=== PATIENT | male | born 1940 | race Caucasian/White ===

== ENCOUNTER 2024-05-20 14:02 | Observation (INO) ==
--- NOTE | 2024-05-20 14:33 | CT Scan Report ---
CT head/brain wo con CLINICAL HISTORY: Neuro deficit, acute, stroke suspected. TECHNIQUE: Multiple axial CT images of the head were obtained without contrast. A dose lowering tech nique was utilized adhering to the principles of ALARA. CT DOSE: 703.85 mGy.cm COMPARISON: None FINDINGS: No intracranial hemorrhage seen. No mass effect or midline shift. There is prominence of th e ventricles out of proportion for sulci which could represent cerebral atrophy or mild normal pressu re hydrocephalus. There is moderate patchy periventricular hypodensity which is nonspecific, but usua lly represents chronic small vessel ischemic changes. No skull fracture seen. There is mild mucosal t hickening at the right maxillary sinus. IMPRESSION: No acute findings. ACT 112: Negative or not required by law. The above report was generated using voice recognition software. It may contain grammatical, syntax o r spelling errors. Electronically signed by: Rl Dennis M.D. 05/20/2024 2:32 PM
[2024-05-20 14:44] LABS: Hematocrit (blood only) 40.6 % (42.0-52.0); Hemoglobin 14.5 g/dl (14.0-18.0); Mean Corpuscular Hgb Conc 35.7 g/dL (32.0-36.0); Mean Corpuscular Volume 86.9 fL (80.0-100.0); Mean Platelet Volume 10.1 fL (9.4-12.4); Platelet Count 165 K/uL (130-400); RDW Coefficient of Variation 12.8 % (11.5-14.5); Red Blood Count 4.67 M/uL (4.70-6.10); White Blood Count 8.38 K/ul (4.8-10.8)
--- NOTE | 2024-05-20 14:47 | XRay Report ---
XR chest 1V portable CLINICAL HISTORY: stroke alert TECHNIQUE: Single frontal radiograph of the chest was obtained. Comparison: None available at the time of this dictation. FINDINGS: No lines and tubes are seen. Cardiomegaly is noted. Prominence and cephalization of the vasculature i s seen. No evidence of pleural effusion or pneumothorax. IMPRESSION: Cardiomegaly and mild pulmonary edema. ACT 112: Negative or not required by law. Electronically signed by: Ha Steven M.D. 05/20/2024 2:46 PM
[2024-05-20 15:01] LABS: Albumin Level 4.4 gm/dl (3.4-5.0); BUN Creatinine Ratio 25.4 (10-20); Bilirubin,Total 0.9 mg/dl (0.2-1.0); Calcium 9.5 mg/dl (8.6-10.3); Creatinine Clr Calc Pharmacy 116.5 ml/min; Globulin 2.2 gm/dl (2.5-4.0); Magnesium 1.8 mg/dl (1.7-2.4); Potassium 3.7 mmol/L (3.5-5.1); Total Protein 6.6 gm/dl (6.0-8.3)
[2024-05-20] MEDS: OPTIRAY 320 125ml IV ONE (16:03)
--- NOTE | 2024-05-20 16:15 | CT Scan Report ---
Clinical history: Difficulty finding words Technique: Axial computed tomography images were obtained of the brain after the administration of intravenous contrast according to the CT angiogram protocol Findings: There is calcified plaque within the cavernous and supraclinoid segments of the internal carotid arteries bilaterally, without stenosis No definite stenosis or aneurysm is seen of the anterior, middle, or posterior cerebral artery circulations. The visualized vertebral arteries and the basilar artery appear unremarkable Impression: No definite stenosis or aneurysm of the intracranial arteries Electronically signed by Tyler Sunshine 05-20-2024 4:15 PM
--- NOTE | 2024-05-20 16:22 | CT Scan Report ---
Clinical history: Difficulty finding words Technique: Axial computed tomography images were obtained of the neck after the administration of intravenous contrast according to the CT angiogram protocol Findings: No stenosis is seen in the common carotid arteries bilaterally. There is a mild stenosis of the left carotid bulb with 30-40% diameter narrowing. There is less severe plaque in the right carotid bulb, without apparent stenosis. The remainder of the internal carotid arteries appear patent bilaterally. No stenosis of the external carotid arteries is seen The vertebral arteries are patent bilaterally with no significant stenosis seen. The visualized thoracic aorta appears unremarkable There is a small heterogeneously enhancing nodule in the right thyroid lobe Impression: 1. 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 Indeterminate thyroid nodule. A follow-up thyroid ultrasound could be obtained Electronically signed by Tyler Sunshine 05-20-2024 4:21 PM
[2024-05-20 16:33] LABS: INR 1.1 (0.9-1.1); Partial Thromboplastin Ratio 1.1; Partial Thromboplastin Time 30 Seconds (21-31); Prothrombin Time 11.4 Seconds (9.0-12.0)
--- NOTE | 2024-05-20 16:58 | Electrocardiogram Report ---
Test Reason : Blood Pressure : */* mmHG Vent. Rate : 71 BPM Atrial Rate : 71 BPM P-R Int : 184 ms QRS Dur : 90 ms QT Int : 408 ms P-R-T Axes : * 17 77 degrees QTcB Int : 443 ms Sinus rhythm with marked sinus arrhythmia Nonspecific T wave abnormality Abnormal ECG No previous ECGs available Confirmed by Ford Salmeron ([id number]) on 05/20/2024 4:58:21 PM Referred By: Confirmed By: Ford Salmeron
[2024-05-20] MEDS ORDERED: LABETALOL HCL IV 5 MG/ML 20ML IV PRN (18:24)
--- NOTE | 2024-05-20 18:25 | Emergency Department Note ---
Impression & Plan Expressive aphasia ED Provider Note NAME: RAUL DANIELS AGE: 83 SEX: Male INFORMANT: Patient and ED PROVIDER(S): Alex Martell MD CHIEF COMPLAINT: Strokelike symptoms PLAN: Disposition: Admitted Outpatient prescription management: none Referral: None MEDICAL DECISION MAKING: Patient presented because strokelike symptoms. They were currently resolved and he was on Eliquis. Patient was not deemed a TNK candidate. He underwent a stroke workup. Blood work was unremarkable. Patient's ECG showed a sinus rhythm. Cardiac monitoring was unremarkable. CT and CT angiography revealed no acute findings. Patient was Hypertensive.discussed further management in the hospital and patient was in agreement. Consultation was made to the [facility] hospitalist service. Patient was evaluated in ER admitted for further management. Care/management discussed with: investments manager, hospitalist Level of care consideration(s): After review of the information above and other included data, I feel the patient requires escalation of care to admission Triage Nursing notes: reviewed and agree them. Vital Signs: reviewed and remarkable for hypertension Additional History obtained from: Patient's describes his difficulty word finding. Chronic Medical/Social Conditions affecting care: Hypertension Prior/ Outside/ External records reviewed: none Differential Diagnosis: CVA, TIA,Infection, dehydration, metabolic abnormality, hypo/hyperglycemia, electrolyte disturbance, anemia, hypoxia, cardiac sources, intracerebral event, toxicologic, neurologic, as well as other pathologies. Diagnostics, independently interpreted by me: ECG: Twelve-lead ECG reveals a sinus rhythm with sinus arrhythmia at 71 bpm. Cardiac Monitoring: Cardiac monitoring ordered by me: The patient was placed on continuous cardiac monitoring and observed. It revealed a sinus rhythm with sinus arrhythmia at 77 bpm. Medical decision rules: none Imaging studies: Chest x-ray reveals mild cardiomegaly. No infiltrate. Head CT: A noncontrast CT scan of the head was performed and was negative for tumor, fracture, intracranial hemorrhage, or other acute pathology. HPI: 83 year old Male arrives for evaluation of strokelike symptoms. This started about 10:00 this morning, lasting an hour and is resolved. The patient states he had difficulty getting his words out and her speech was garbled. is present and confirms. The patient also notes the following associated symptoms, none. Patient does note having an episode similar over a year ago but did not seek care for this. The patient has taken no medication for relieving factors. Current pain is rated as 0/10. Patient went to the [facility] and was referred to the ER due to concerns of the strokelike symptoms. Patient does take Eliquis. Pt denies LOC, headache, fevers, chills, diaphoresis, visual changes, neck pain, chest pain, breathing difficulties, nausea, vomiting, abdominal pain, back pain, melena, hematochezia, urinary symptoms, numbness, weakness, lymphadenopathy, rash, or other complaints. PAST MEDICAL HISTORY: See Below, anticoagulation, A-fib PAST SURGICAL HISTORY: See Below, SOCIAL HISTORY: See Below, HOME MEDICATIONS: See Below ALLERGIES: See Below VITALS: See Below PHYSICAL EXAMINATION: GENERAL: Awake, alert, well-appearing, in no distress HENT: Normocephalic, atraumatic. Oropharynx unremarkable. EYES: Normal conjunctiva. Sclera non-icteric. PERRLA. EOMI. NECK: Inspection normal. Non-tender. Supple. No nuchal rigidity. FROM. No masses. RESPIRATORY: Clear to auscultation. No wheezes. No rales. Normal respiratory effort. CARDIAC: Normal rate. Normal rhythm. No murmurs. No rubs. Extremities warm and well perfused. Pulses equal. No JVD. GI: Soft, non-distended. No tenderness to palpation. No rebound or guarding. No masses. RECTAL: Deferred. MUSCULOSKELETAL: Atraumatic. Chest examination reveals no tenderness. The back is symmetrical on inspection without obvious abnormality. There is no CVA tenderness to palpation. No joint edema. LOWER EXTREMITIES: Calves are equal size bilaterally and non-tender. 1+ edema. No discoloration. NEURO: Normal sensorium. No sensory or motor deficits noted. Speech normal. No drift. Normal rapid alternating movements. SKIN: No rash or jaundice noted. PROCEDURES: none CRITICAL CARE: none OBSERVATION NOTE: none Past Med/Surg History Problem List (Updated 05/20/24 @ 18:25 by Alex Martell MD) Expressive aphasia (Acute) Incomplete bladder emptying Venous stasis ulcer (Acute) Mixed conductive and sensorineural hearing loss of left ear with restricted hearing of right ear Encounter for mastoidectomy cavity debridement Impacted cerumen Urgency incontinence (Chronic) Lower extremity edema (Chronic) Chronic venous insufficiency (Chronic) Hearing loss of right ear due to cerumen impaction Medical History History of venous stasis ulcer of lower extremity Depression Hyperlipidemia Urinary incontinence Environmental and seasonal allergies Irregular heart beat History of Mohs micrographic surgery for skin cancer SCC (squamous cell carcinoma) Basal cell carcinoma Hypertension Surgical History Hx of cataract surgery Hx of colonoscopy S/P hernia repair History of mastoidectomy History of back surgery History of hernia repair History of tonsillectomy and adenoidectomy Family History Mother Hypertension Cancer Father Cancer Other No family history of bleeding disorder Social History Smoking Status: Former smoker Tobacco Type: Cigarettes packs per day: 1; Cigarettes Per Day: quit 1970; Second Hand Exposure: No; Do You Dip or Chew Tobacco: No; Hx Alcohol Use: Yes Alcohol type: wine Hx Substance Use: No Preferred Language: Burmese Communication Ability: Effective Visual Impairment: No Limitations Hearing Ability: Hard of Hearing Marriage Performer Required: No Beliefs That Will Affect Care: None marital status: Current Living Situation: Spouse current occupational status: retired Feels Safe at Home: Yes Diet: regular caffeine: Yes during the past year weight has: remained stable Assistive Devices: Cane, Glasses and Hearing Aid - Bilateral Allergies Allergies Allergy/AdvReac Type Severity Reaction Status Date / Time aspirin Allergy Unknown Unknown Verified 05/20/24 16:28 ibuprofen [From Advil] Allergy Unknown Unknown Verified 05/20/24 16:28 lisinopril Allergy Unknown THROAT Verified 05/20/24 16:28 SWELLING pollen extracts Allergy Unknown Congested Verified 05/20/24 16:28 shellfish derived Allergy Unknown Vomiting Verified 05/20/24 16:28 Home Meds Home Medications Medication Instructions Recorded Confirmed acetaminophen 500 mg capsule 500 mg PO QID PRN Pain 02/04/19 05/20/24 atorvastatin 20 mg tablet 20 mg PO HS 02/04/19 05/20/24 doxazosin 2 mg tablet 2 mg PO HS 02/04/19 05/20/24 sertraline 50 mg tablet 50 mg PO QAM 02/04/19 05/20/24 telmisartan 80 1 tab PO QAM 02/04/19 05/20/24 mg-hydrochlorothiazide 25 mg tablet apixaban 5 mg tablet (Eliquis) 5 mg PO QAM 12/26/20 05/20/24 metoprolol tartrate 25 mg tablet 25 mg PO BID 10/23/21 05/20/24 cholecalciferol (vitamin D3) 50 50 mcg PO DAILY 05/20/24 05/20/24 mcg (2,000 unit) tablet (Vitamin D3) cyanocobalamin (vitamin B-12) 1,000 mcg PO DAILY 05/20/24 05/20/24 1,000 mcg tablet (Vitamin B-12) tamsulosin 0.4 mg capsule 0.4 mg PO QAM 05/20/24 05/20/24 Previous Rx's Medication Instructions Recorded vibegron 75 mg tablet (Gemtesa) 75 mg PO DAILY #30 tabs 01/29/24 Results & Data (ED) Vital Signs Vital Signs - 24 hr 05/20/24 14:08 05/20/24 14:44 05/20/24 14:44 Temperature 36.6 C Temperature Source Temporal Artery Scan Pulse Rate 72 Pulse Rate [Apical] Pulse Rate from SpO2 Sensor Pulse Rhythm Regular Respiratory Rate 20 Respiratory Effort / Characteristics Non-Labored Spontaneous Respiratory Depth Normal Respiratory Pattern Regular Blood Pressure 188/95 H Blood Pressure [Left Arm] Blood Pressure [Right Arm] Blood Pressure Mean 126 Blood Pressure Mean [Left Arm] Blood Pressure Mean [Right Arm] Blood Pressure Position Sitting Pulse Oximetry 94 96 96 Oxygen Delivery Method Room Air Room Air Room Air Sepsis Recent Fever Within 48 Hours No Sepsis New/Unexplained Change in Mental Status No Sepsis Action Taken by Nursing No Action Required 05/20/24 14:44 05/20/24 14:48 05/20/24 14:50 Temperature Temperature Source Pulse Rate 70 70 Pulse Rate [Apical] 71 Pulse Rate from SpO2 Sensor 69 Pulse Rhythm Respiratory Rate 18 19 Respiratory Effort / Characteristics Respiratory Depth Respiratory Pattern Blood Pressure Blood Pressure [Left Arm] 149/90 H Blood Pressure [Right Arm] Blood Pressure Mean Blood Pressure Mean [Left Arm] 109 Blood Pressure Mean [Right Arm] Blood Pressure Position Pulse Oximetry 96 96 Oxygen Delivery Method Room Air Sepsis Recent Fever Within 48 Hours Sepsis New/Unexplained Change in Mental Status Sepsis Action Taken by Nursing 05/20/24 14:51 05/20/24 15:15 05/20/24 16:09 Temperature Temperature Source Pulse Rate 67 70 77 Pulse Rate [Apical] Pulse Rate from SpO2 Sensor 69 74 Pulse Rhythm Respiratory Rate 12 17 18 Respiratory Effort / Characteristics Respiratory Depth Respiratory Pattern Blood Pressure Blood Pressure [Left Arm] Blood Pressure [Right Arm] Blood Pressure Mean Blood Pressure Mean [Left Arm] Blood Pressure Mean [Right Arm] Blood Pressure Position Pulse Oximetry 95 94 Oxygen Delivery Method Sepsis Recent Fever Within 48 Hours Sepsis New/Unexplained Change in Mental Status Sepsis Action Taken by Nursing 05/20/24 16:11 05/20/24 16:15 05/20/24 16:16 Temperature Temperature Source Pulse Rate Pulse Rate [Apical] 72 Pulse Rate from SpO2 Sensor Pulse Rhythm Respiratory Rate 17 Respiratory Effort / Characteristics Non-Labored Spontaneous Respiratory Depth Normal Respiratory Pattern Regular Blood Pressure 173/91 H 184/82 H Blood Pressure [Left Arm] Blood Pressure [Right Arm] 184/82 H Blood Pressure Mean 119 91 Blood Pressure Mean [Left Arm] Blood Pressure Mean [Right Arm] 116 Blood Pressure Position Pulse Oximetry 96 Oxygen Delivery Method Room Air Sepsis Recent Fever Within 48 Hours Sepsis New/Unexplained Change in Mental Status Sepsis Action Taken by Nursing 05/20/24 16:16 05/20/24 16:45 05/20/24 17:02 Temperature Temperature Source Pulse Rate 69 Pulse Rate [Apical] Pulse Rate from SpO2 Sensor Pulse Rhythm Respiratory Rate 23 Respiratory Effort / Characteristics Respiratory Depth Respiratory Pattern Blood Pressure 184/82 H 144/54 H Blood Pressure [Left Arm] Blood Pressure [Right Arm] Blood Pressure Mean 91 64 Blood Pressure Mean [Left Arm] Blood Pressure Mean [Right Arm] Blood Pressure Position Pulse Oximetry 94 Oxygen Delivery Method Room Air Sepsis Recent Fever Within 48 Hours Sepsis New/Unexplained Change in Mental Status Sepsis Action Taken by Nursing 05/20/24 17:32 05/20/24 17:33 05/20/24 18:00 Temperature Temperature Source Pulse Rate 71 71 Pulse Rate [Apical] Pulse Rate from SpO2 Sensor Pulse Rhythm Respiratory Rate 20 Respiratory Effort / Characteristics Respiratory Depth Respiratory Pattern Blood Pressure 173/107 H Blood Pressure [Left Arm] Blood Pressure [Right Arm] Blood Pressure Mean 131 Blood Pressure Mean [Left Arm] Blood Pressure Mean [Right Arm] Blood Pressure Position Pulse Oximetry 97 98 Oxygen Delivery Method Room Air Room Air Sepsis Recent Fever Within 48 Hours Sepsis New/Unexplained Change in Mental Status Sepsis Action Taken by Nursing 05/20/24 18:02 05/20/24 18:14 Temperature Temperature Source Pulse Rate Pulse Rate [Apical] 78 Pulse Rate from SpO2 Sensor Pulse Rhythm Respiratory Rate 19 Respiratory Effort / Characteristics Non-Labored Spontaneous Respiratory Depth Normal Respiratory Pattern Regular Blood Pressure 190/135 H Blood Pressure [Left Arm] 178/137 H Blood Pressure [Right Arm] Blood Pressure Mean 157 Blood Pressure Mean [Left Arm] 150 Blood Pressure Mean [Right Arm] Blood Pressure Position Pulse Oximetry 96 Oxygen Delivery Method Room Air Sepsis Recent Fever Within 48 Hours Sepsis New/Unexplained Change in Mental Status Sepsis Action Taken by Nursing Laboratory Data 05/20/24 14:28 05/20/24 14:28 Lab Results 05/20/24 05/20/24 Range/Units 14:28 15:52 WBC 8.38 (4.8-10.8) K/ul RBC 4.67 L (4.70-6.10) M/uL Hgb 14.5 (14.0-18.0) g/dl Hct 40.6 L (42.0-52.0) % MCV 86.9 (80.0-100.0) fL MCH 31.0 (25.0-34.0) pg MCHC 35.7 (32.0-36.0) g/dL RDW Std Deviation 40.0 (36.4-46.3) fL RDW Coeff of Trell 12.8 (11.5-14.5) % Plt Count 165 (130-400) K/uL MPV 10.1 (9.4-12.4) fL PT Cancelled 11.4 INR Cancelled 1.1 APTT Cancelled 30 PTT Ratio Cancelled 1.1 Sodium 135 L (136-145) mmol/L Potassium 3.7 (3.5-5.1) mmol/L Chloride 101 (98-107) mmol/L Carbon Dioxide 29 (21-32) mmol/L Anion Gap 5 (3-11) BUN 16 (6-23) mg/dl Creatinine 0.63 (0.6-1.4) mg/dl Est Cr Clr Drug Dosing 116.5 ml/min eGFR 94.97 BUN/Creatinine Ratio 25.4 H (10-20) Glucose 126 H (70-99(Fasting)) mg/dl Calcium 9.5 (8.6-10.3) mg/dl Magnesium 1.8 (1.7-2.4) mg/dl Total Bilirubin 0.9 (0.2-1.0) mg/dl AST 17 (13-39) U/L ALT 20 (7-52) U/L Alkaline Phosphatase 80 (34-104) U/L Total Protein 6.6 (6.0-8.3) gm/dl Albumin 4.4 (3.4-5.0) gm/dl Globulin 2.2 L (2.5-4.0) gm/dl Albumin/Globulin Ratio 2.0 (0.9-2) Administered Medications Discontinued Medications Ioversol (Optiray 320 125ml) 119 ml IV ONCE ONE Stop: 05/20/24 16:03 Last Admin: 05/20/24 16:03 Dose: 119 ml Documented By: REVA Imaging Data Radiologist's Impression: Chest X-Ray 05/20/24 14:13 XR chest 1V portable CLINICAL HISTORY: stroke alert TECHNIQUE: Single frontal radiograph of the chest was obtained. Comparison: None available at the time of this dictation. FINDINGS: No lines and tubes are seen. Cardiomegaly is noted. Prominence and cephalization of the vasculature is seen. No evidence of pleural effusion or pneumothorax. IMPRESSION: Cardiomegaly and mild pulmonary edema. ACT 112: Negative or not required by law. Electronically signed by: Ha Steven M.D. 05/20/2024 2:[address] 05/20/24 14:13 CT head/brain wo con CLINICAL HISTORY: Neuro deficit, acute, stroke suspected. TECHNIQUE: Multiple axial CT images of the head were obtained without contrast. A dose lowering technique was utilized adhering to the principles of ALARA. CT DOSE: 703.85 mGy.cm COMPARISON: None FINDINGS: No intracranial hemorrhage seen. No mass effect or midline shift. There is prominence of the ventricles out of proportion for sulci which could represent cerebral atrophy or mild normal pressure hydrocephalus. There is moderate patchy periventricular hypodensity which is nonspecific, but usually represents chronic small vessel ischemic changes. No skull fracture seen. There is mild mucosal thickening at the right maxillary sinus. IMPRESSION: No acute findings. ACT 112: Negative or not required by law. The above report was generated using voice recognition software. It may contain grammatical, syntax or spelling errors. Electronically signed by: Rl Dennis M.D. 05/20/2024 2:32 PM Head CTA 05/20/24 15:36 Clinical history: Difficulty finding words Technique: Axial computed tomography images were obtained of the brain after the administration of intravenous contrast according to the CT angiogram protocol Findings: There is calcified plaque within the cavernous and supraclinoid segments of the internal carotid arteries bilaterally, without stenosis No definite stenosis or aneurysm is seen of the anterior, middle, or posterior cerebral artery circulations. The visualized vertebral arteries and the basilar artery appear unremarkable Impression: No definite stenosis or aneurysm of the intracranial arteries Electronically signed by Tyler Sunshine 05-20-2024 4:15 PM Neck CTA 05/20/24 15:36 Clinical history: Difficulty finding words Technique: Axial computed tomography images were obtained of the neck after the administration of intravenous contrast according to the CT angiogram protocol Findings: No stenosis is seen in the common carotid arteries bilaterally. There is a mild stenosis of the left carotid bulb with 30-40% diameter narrowing. There is less severe plaque in the right carotid bulb, without apparent stenosis. The remainder of the internal carotid arteries appear patent bilaterally. No stenosis of the external carotid arteries is seen The vertebral arteries are patent bilaterally with no significant stenosis seen. The visualized thoracic aorta appears unremarkable There is a small heterogeneously enhancing nodule in the right thyroid lobe Impression: 1. 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 Indeterminate thyroid nodule. A follow-up thyroid ultrasound could be obtained Electronically signed by Tyler Sunshine 05-20-2024 4:21 PM Discharge Plan Visit Data Chief Complaint: TIA Symptoms Stated Complaint: TROUBLE FORMING WORDS, MIGRAINE/THIS MORNING ED Provider: Alex Martell Discharge Problem: Expressive aphasia Patient Disposition: Admitted As Inpatient Discharge Instructions Interventions: ED Discharge Assessment Last Done: 05/20/24 18:17 Forms Stand Alone Forms: My [employer] Prescriptions Prescriptions: No Action metoprolol tartrate 25 mg tablet 25 mg PO BID Eliquis 5 mg tablet 5 mg PO QAM telmisartan-hydrochlorothiazid 80-25 mg tablet 1 tab PO QAM doxazosin 2 mg tablet 2 mg PO HS acetaminophen 500 mg capsule 500 mg PO QID PRN (Reason: Pain) sertraline 50 mg tablet 50 mg PO QAM atorvastatin 20 mg tablet 20 mg PO HS Gemtesa 75 mg tablet 75 mg PO DAILY Qty: 30 5RF cyanocobalamin (vitamin B-12) [Vitamin B-12] 1,000 mcg Tablet 1,000 mcg PO DAILY cholecalciferol (vitamin D3) [Vitamin D3] 50 mcg (2,000 unit) Tablet 50 mcg PO DAILY tamsulosin 0.4 mg capsule 0.4 mg PO QAM Referrals Referrals: Seymour Mcgowan MD [Primary Care Provider] -
[2024-05-20] MEDS ORDERED: ONDANSETRON INJ 2 MG/ML 2 ML VIAL IV PRN (18:28)
[2024-05-20] MEDS ORDERED: PHARMACIST DISCHARGE MED REC CONSULT PRN (18:28)
[2024-05-20] MEDS ORDERED: ACETAMINOPHEN 325 MG TAB PO PRN (18:28)
[2024-05-20] MEDS ORDERED: POLYETHYLENE (MIRALAX) 17 GM PACK PO PRN (18:28)
--- NOTE | 2024-05-20 19:13 | History & Physical Report ---
Date of Service May 20, 2024 Assessment & Plan (1) Stroke-like symptoms: Plan: Patient is 83-year-old male with PMH HTN, HLD, paroxysmal atrial fibrillation anticoagulated on Eliquis, anxiety, history of prostate CA presented to ER after episode of expressive aphasia this morning lasting approximately 10 minutes. No further symptoms In ER pt hypertensive, otherwise vitals stable. CT Head:no acute findings CTA Head: No definite stenosis or aneurysm of the intracranial arteries CTA neck: Mild stenosis of the left carotid bulb. Indeterminate thyroid nodule. CXR: Cardiomegaly is noted. Prominence and cephalization of the vasculature DDx: TIA, CVA, Hypertensive emergency, complex migraine Tele to monitor for arrhythmias A1C, TSH, Lipid panel in am MRI brain Echo Fall precautions, aspiration precautions PT/OT consult Anticoagulated on Eliquis. Will obtain MRI results before adding aspirin. Continue home dose atorvastatin, may need to consider increasing dose Allow permissive HTN, labetalol SBP>185 in 1st 24 hrs Consider neurology consult (2) Hypertension: Plan: Hypertensive in ER Allow permissive HTN, labetalol SBP>185 in 1st 24 hrs Continue home metoprolol tartrate, telmisartan, HCTZ (3) PAF (paroxysmal atrial fibrillation): Plan: Anticoagulated on Eliquis Continue Eliquis, metoprolol tartrate (4) Hyperlipidemia: Plan: On atorvastatin (5) Anxiety: Plan: Continue sertraline DVT Prophylaxis On Eliquis Admit telemetry Full Code as per discussion with pt Follows with Dr Mcgowan for routine care Pt was seen and care coordinated with Dr Dobbs. See addendum I spent a total of 79 minutes reviewing notes, outpatient records, labs, medication, coordinating, documenting and providing care for this patient excluding time spent in the performance of separately billed services. History of Present Illness Chief Complaint: Speech changes Primary Care Provider: Seymour Mcgowan MD Patient is 83-year-old male with PMH HTN, HLD, paroxysmal atrial fibrillation anticoagulated on Eliquis, anxiety, history of prostate CA presented to ER with complaint of episode of speech changes today. Patient states this morning woke up in his normal health. He states he was watching the news and then was trying to geiger to get ready to go out for lunch today and he was feeling increasingly anxious. States he is anxious "most of the time" and this felt like his typical anxiety. He states then he had onset of expressive aphasia that lasted approximately 10 minutes. Patient states symptoms self resolved. After that he had episode of "flashing light" in right eye. Denies any headache. Patient reports history episodes of "flashing light" to right eye in past that is never associated with headache, which he relates to possible migraine. Denies any headache, dizziness, extremity weakness, facial drooping. Reports chronic BLE peripheral neuropathy but denies any changes or increased extremity paresthesias. States went to outpatient clinic today and was referred to ER. Denies any recurrent symptoms today. Denies fever/chills, diaphoresis, N/V/D/C, syncope, vision loss, diplopia, neck pain, CP, SOB, palpitations, cough, sore throat, rhinorrhea, abdominal pain, paresthesias, extremity edema, rashes, urinary symptoms. Allergies Allergy/AdvReac Type Severity Reaction Status Date / Time aspirin Allergy Unknown Unknown Verified 05/20/24 16:28 ibuprofen [From Advil] Allergy Unknown Unknown Verified 05/20/24 16:28 lisinopril Allergy Unknown THROAT Verified 05/20/24 16:28 SWELLING pollen extracts Allergy Unknown Congested Verified 05/20/24 16:28 shellfish derived Allergy Unknown Vomiting Verified 05/20/24 16:28 Home Medications Medication Instructions Recorded Confirmed Type acetaminophen 500 mg capsule 500 mg PO QID PRN Pain 02/04/19 05/20/24 History atorvastatin 20 mg tablet 20 mg PO HS 02/04/19 05/20/24 History doxazosin 2 mg tablet 2 mg PO HS 02/04/19 05/20/24 History sertraline 50 mg tablet 50 mg PO QAM 02/04/19 05/20/24 History telmisartan 80 1 tab PO QAM 02/04/19 05/20/24 History mg-hydrochlorothiazide 25 mg tablet apixaban 5 mg tablet (Eliquis) 5 mg PO BID 12/26/20 05/20/24 History metoprolol tartrate 25 mg tablet 25 mg PO BID 10/23/21 05/20/24 History vibegron 75 mg tablet (Gemtesa) 75 mg PO DAILY #30 tabs 01/29/24 05/20/24 Rx cholecalciferol (vitamin D3) 50 50 mcg PO DAILY 05/20/24 05/20/24 History mcg (2,000 unit) tablet (Vitamin D3) cyanocobalamin (vitamin B-12) 1,000 mcg PO DAILY 05/20/24 05/20/24 History 1,000 mcg tablet (Vitamin B-12) tamsulosin 0.4 mg capsule 0.4 mg PO QAM 05/20/24 05/20/24 History Past Med/Surg History Problem List (Updated 05/20/24 @ 21:32 by Hawa Ng PA-C) Anxiety PAF (paroxysmal atrial fibrillation) Stroke-like symptoms Expressive aphasia (Acute) Incomplete bladder emptying Venous stasis ulcer (Acute) Mixed conductive and sensorineural hearing loss of left ear with restricted hearing of right ear Encounter for mastoidectomy cavity debridement Impacted cerumen Urgency incontinence (Chronic) Lower extremity edema (Chronic) Chronic venous insufficiency (Chronic) Hearing loss of right ear due to cerumen impaction Medical History History of venous stasis ulcer of lower extremity Depression Hyperlipidemia Urinary incontinence Environmental and seasonal allergies Irregular heart beat ? a fib hx - poor historian- controlled w/ medication - follows w/ [facility], last visit ~ yr ago History of Mohs micrographic surgery for skin cancer SCC (squamous cell carcinoma) hx Basal cell carcinoma hx Hypertension Surgical History Hx of cataract surgery right Hx of colonoscopy S/P hernia repair History of mastoidectomy mastoidectomy w/ type 4 tympanoplasty 1973. History of back surgery cyst removed History of hernia repair History of tonsillectomy and adenoidectomy Family History Mother Hypertension Cancer Father Cancer Other No family history of bleeding disorder Social History Smoking Status: Former smoker Tobacco Type: Cigarettes packs per day: 1; Cigarettes Per Day: quit 1970; Second Hand Exposure: No; Do You Dip or Chew Tobacco: No; Hx Alcohol Use: Yes Alcohol type: wine Hx Substance Use: No Preferred Language: Telugu Communication Ability: Effective Visual Impairment: No Limitations Hearing Ability: Hard of Hearing Commutator Operator Required: No Beliefs That Will Affect Care: None marital status: Current Living Situation: Spouse current occupational status: retired Feels Safe at Home: Yes Diet: regular caffeine: Yes during the past year weight has: remained stable Assistive Devices: Cane, Glasses and Hearing Aid - Bilateral Review of Systems Review of Systems: All systems reviewed & are unremarkable except as noted in HPI & below Physical Exam Physical Exam: General: no distress, WDWN Head: normocephalic, atraumatic Eyes: PERRL, EOM's intact, no nystagmus, conjunctiva non-injected, anicteric ENT: normal inspection external ears, nose, mucous membranes moist Neck: supple, trachea midline Lungs: clear, no respiratory distress, no wheezing/rhonchi/rales CV: RRR, no murmur, no JVD, no pretibial edema Abd: normal BS, soft, non-tender Ext: no cyanosis, no calf tenderness Neuro: A&O x 3, no focal deficits noted, anxious affect. facial sensation is intact and symmetric, face is strong and symmetric, soft palate elevates symmetrically, no dysarthria, shoulder shrug intact, tongue is midline, normal movement, no fasciculations. strength equal bilateral upper and lower extremities Skin: warm, dry Results & Data Results & Data Vital Signs (Past 12 Hours) Vital Signs Temp Pulse Pulse Resp BP BP BP 05/20/24 16:16 184/82 H 05/20/24 16:16 184/82 H 05/20/24 16:15 72 17 184/82 H 05/20/24 16:11 173/91 H 05/20/24 16:09 77 18 05/20/24 15:15 70 17 05/20/24 14:51 67 12 05/20/24 14:50 70 05/20/24 14:48 70 19 05/20/24 14:44 71 18 149/90 H 05/20/24 14:44 05/20/24 14:44 05/20/24 14:08 36.6 C 72 20 188/95 H Pulse Ox O2 Del Method 05/20/24 16:16 05/20/24 16:16 05/20/24 16:15 96 Room Air 05/20/24 16:11 05/20/24 16:09 05/20/24 15:15 94 05/20/24 14:51 95 05/20/24 14:50 05/20/24 14:48 96 05/20/24 14:44 96 Room Air 05/20/24 14:44 96 Room Air 05/20/24 14:44 96 Room Air 05/20/24 14:08 94 Room Air Laboratory Results Short CBC 05/20/24 Range/Units 14:28 WBC 8.38 (4.8-10.8) K/ul Hgb 14.5 (14.0-18.0) g/dl Hct 40.6 L (42.0-52.0) % Plt Count 165 (130-400) K/uL BMP 05/20/24 14:28 Sodium 135 L Potassium 3.7 Chloride 101 Carbon Dioxide 29 BUN 16 Creatinine 0.63 Glucose 126 H Calcium 9.5 Liver Function 05/20/24 Range/Units 14:28 Total Bilirubin 0.9 (0.2-1.0) mg/dl AST 17 (13-39) U/L ALT 20 (7-52) U/L Alkaline Phosphatase 80 (34-104) U/L Albumin 4.4 (3.4-5.0) gm/dl Diagnostic Findings Chest X-Ray 05/20/24 14:13 XR chest 1V portable CLINICAL HISTORY: stroke alert TECHNIQUE: Single frontal radiograph of the chest was obtained. Comparison: None available at the time of this dictation. FINDINGS: No lines and tubes are seen. Cardiomegaly is noted. Prominence and cephalization of the vasculature is seen. No evidence of pleural effusion or pneumothorax. IMPRESSION: Cardiomegaly and mild pulmonary edema. ACT 112: Negative or not required by law. Electronically signed by: Ha Steven M.D. 05/20/2024 2:[address] 05/20/24 14:13 CT head/brain wo con CLINICAL HISTORY: Neuro deficit, acute, stroke suspected. TECHNIQUE: Multiple axial CT images of the head were obtained without contrast. A dose lowering technique was utilized adhering to the principles of ALARA. CT DOSE: 703.85 mGy.cm COMPARISON: None FINDINGS: No intracranial hemorrhage seen. No mass effect or midline shift. There is prominence of the ventricles out of proportion for sulci which could represent cerebral atrophy or mild normal pressure hydrocephalus. There is moderate patchy periventricular hypodensity which is nonspecific, but usually represents chronic small vessel ischemic changes. No skull fracture seen. There is mild mucosal thickening at the right maxillary sinus. IMPRESSION: No acute findings. ACT 112: Negative or not required by law. The above report was generated using voice recognition software. It may contain grammatical, syntax or spelling errors. Electronically signed by: Rl Dennis M.D. 05/20/2024 2:32 PM Head CTA 05/20/24 15:36 Clinical history: Difficulty finding words Technique: Axial computed tomography images were obtained of the brain after the administration of intravenous contrast according to the CT angiogram protocol Findings: There is calcified plaque within the cavernous and supraclinoid segments of the internal carotid arteries bilaterally, without stenosis No definite stenosis or aneurysm is seen of the anterior, middle, or posterior cerebral artery circulations. The visualized vertebral arteries and the basilar artery appear unremarkable Impression: No definite stenosis or aneurysm of the intracranial arteries Electronically signed by Tyler Sunshine 05-20-2024 4:15 PM Neck CTA 05/20/24 15:36 Clinical history: Difficulty finding words Technique: Axial computed tomography images were obtained of the neck after the administration of intravenous contrast according to the CT angiogram protocol Findings: No stenosis is seen in the common carotid arteries bilaterally. There is a mild stenosis of the left carotid bulb with 30-40% diameter narrowing. There is less severe plaque in the right carotid bulb, without apparent stenosis. The remainder of the internal carotid arteries appear patent bilaterally. No stenosis of the external carotid arteries is seen The vertebral arteries are patent bilaterally with no significant stenosis seen. The visualized thoracic aorta appears unremarkable There is a small heterogeneously enhancing nodule in the right thyroid lobe Impression: 1. 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 Indeterminate thyroid nodule. A follow-up thyroid ultrasound could be obtained Electronically signed by Tyler Sunshine 05-20-2024 4:21 PM Supervising Physician Co-Signing Physician Notes I have seen and discussed the case with the collaborating advanced practitioner. I agree with the above H&P. I have reviewed and confirmed the patients medical history, the findings on physical examination, and the patients diagnosis and treatment plan with Hernandez REYES and agree with the information docum ented. In short, Mr. Carmen is an 83 yo gentleman presenting with episode of aphasia this morning. CT was without critical vessel stenosis, but noted patchy periventricular hypodensity similar to chronic changes Patient reports significant anxiety over multiple events that took place today--possibly contributing to presentation On exam, patient was with clear speech, talkative and pleasant. CNII-CNXII intact. moving all extremities with good strength #Stroke like symptoms MRI ordered consider neuro consult if positive patient on eliquis at this time, continue lipid panel in am, consider increasing statin if warranted agree with plan above I spent a total of 15 minutes coordinating, documenting, and providing care for this patient excluding time spent in the performance of separately billed services. All of the aforementioned completed outside of collaborating with the assigned advanced practitioner for a full treatment plan. I have reviewed the advanced practitioner's documentation, and I agree with, and take responsibility for the plan of care
--- OUTSIDE RECORDS SUMMARY | 2024-05-20 20:48 | External Medical Summary | Continuity Of Care Document ---
Author Name Unknown Address [address] [place] [id number] Organization [facility] () Care Team Providers Care Operations Research Scientist Name Role Phone Seymour Mcgowan Primary Care Provider +
--- OUTSIDE RECORDS SUMMARY | 2024-05-20 20:48 | External Medical Summary | Summary of Care ---
Author Name Unknown Organization [facility] [address] [facility] [facility] [address] Phone [phone] Care Team Providers Care Mitochondrial Disorders Counselor Name Role Phone Seymour Rod MD Primary Care Provider + Reason for Visit * Reason Comments eRx-Medication Refill Encounter Details Date Type Department Care Team (Late st Contact Info) Description 04/06/2024 Refill General Internal Medicine [facility] [address] [facility] [place] [address] Seymour Rod MD 200 [place] [address] Hyperlipidemia with target LDL less than 130 Allergies Active Allergy Reactions Criticality Noted Date Comments Ibuprofen Other (Please comment) 03/07/2011 Pt was told to,not take --allergy to lisinopril Buffered Aspirin Other (Please comment) 03/07/2011 Pt states was told to not take--allergy to lisinopril Aspirin 03/28/2015 Lisinopril Anaphylaxis High 10/26/2010 Pollen Extract 07/30/2023 Other Reaction(s): Congested Shellfish-Derived Products Nausea/vomiting 09/06/2020 documented as of this encounter (statuses as of 04/07/2024) Medications SHILPA 180 MG PO TABS 1 daily Active VITAMIN C 500 MG PO TABS one pill each day Active B-COMPLEX/B-12 PO TABS 1 tablet daily Active ACETAMINOPHEN 500 MG PO TABS as needed for pain; no dosage provided; patient reports takes rarely 02/23/20 14 Active PA BIOTIN 1000 MCG PO TABS 1 tablet daily Active Multiple Vitamins-Mineral s (CENTRUM SILVER) Tablet Take 1 Tablet by mouth in the morning. When not taking b-complex vitamin. 08/10/19 16 Active Joint Health Oral Capsule Take by mouth 1 Capsule daily . Active Ofloxacin 0.3 % Otic Solution (Floxin) INSERT 6 DROPS INTO EAR TWICE A DAY FOR 7 DAYS 09/24/19 21 Active Gemtesa 75 MG Oral Tablet Take 1 Tablet by mouth in the morning. 03/30/20 21 Active Eliquis 5 MG Oral Tablet (Apixaban)Indica tions:Persistent atrial fibrillation (HCC) take 1 tablet by mouth IN THE MORNING and 1 tablet BEFORE BEDTIME 180 Tablet 1 04/29/19 24 Active Tamsulosin HCl 0.4 MG Oral Capsule (Flomax) 05/20/19 24 Active Sertraline HCl 50 MG Oral Tablet (Zoloft)Indicati ons:Anxiety state take 1 tablet by mouth once daily 90 Tablet 3 12/09/19 24 Active Telmisartan-HCTZ 80-25 MG Oral TabletIndication s:HTN, goal below 140/90 take 1 tablet by mouth every morning 90 Tablet 3 12/18/19 24 Active Doxazosin Mesylate 2 MG Oral Tablet (Cardura)Indicat ions:HTN, goal below 140/90 take 1 tablet by mouth once daily 90 Tablet 1 01/11/20 24 Active Metoprolol Tartrate 25 MG Oral Tablet (Lopressor)Indic ations:HTN, goal below 140/90,Persisten t atrial fibrillation (HCC) take 1 tablet by mouth every morning and at bedtime 180 Tablet 1 04/04/20 24 Active Atorvastatin Calcium 20 MG Oral Tablet (Lipitor)Indicat ions:Hyperlipide isiah with target LDL less than 130 take 1 tablet by mouth every morning 90 Tablet 1 04/07/20 24 Active Atorvastatin Calcium 20 MG Oral Tablet (Lipitor)Indicat ions:Hyperlipide isiah with target LDL less than 130 Take 1 Tablet by mouth daily. 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 Hx of BCC on right posterior shoulder - 1985 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 History of left mastoidectomy 03/01/2016 Urge incontinence of urine 02/28/2015 Overview (02/28/2015): From prostate cancer surgery Mixed hearing loss, unilateral 12/15/2012 Otitis externa, chronic 12/15/2012 Mixed hyperlipidemia 04/16/2011 Overview (08/29/2015): ICD-10 update of inactive term History of prostate cancer 04/16/2011 HTN, goal below 140/90 10/26/2010 Allergic rhinitis 10/26/2010 Anxiety state 10/26/2010 documented as of this encounter (statuses as of 04/07/2024) Resolved Problems Problem Noted Date Diagnosed Date Resolved Date Persistent atrial fibrillation 11/17/2020 04/11/2021 Prediabetes 06/11/2017 08/16/2017 Overview: Per Prediabetes protocol #1 Neoplasm of uncertain behavior of skin 12/29/2013 02/19/2017 Actinic keratosis 12/29/2013 02/19/2017 History of basal cell carcinoma 12/29/2013 02/19/2017 History of squamous cell carcinoma 12/29/2013 02/19/2017 Snoring 12/15/2012 08/16/2017 Overview (08/09/2015): ICD-10 update of inactive term Excess wax in ear 12/15/2012 08/16/2017 Deviated nasal septum 12/15/20122018 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, including shoulder 01/31/2011 02/19/2017 Hearing loss 10/26/2010 08/16/2017 Other malignant neoplasm of skin of upper limb, including shoulder 10/26/2010 01/31/2011 Malignant neoplasm of skin of lip 10/26/2010 Overview (08/09/2015): ICD-10 update of inactive term 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 10/26/2010 documented as of this encounter (statuses as of 04/07/2024) Immunizations Name Administration Dates Next Due COVID-19 mRNA, LNP-s, No Pre serve, 2-Dose Series ([employer]) 03/01/2021,07/11/2020,06/11/2020 COVID-19, LNP-s, No Preserve , Carlton-sucrose, Ages 12+ (Pfizer) 09/13/2021 Covid-19, Mrna, Lnp-s, Pf, B ivalent, 30 Mcg, IM, 12 yrs and above ([employer]) 01/22/2022 Pneumococcal Conjugate Vacc, 13 Valent (Prevnar) 08/31/2014 Pneumococcal Polysaccharide PPV23 (Pneumovax) 06/27/2014,01/31/2011,02/27/2006 Season Influenza, Quad, PF, Adjuvanted, 65+ Yrs, IM (FLUAD) 01/06/2020 Seasonal Influenza Vac., MDV , IM, 0.5 mL (Fluzone) 01/17/2015,01/12/2014,01/29/2013,10/12/2011,01/25/2011 01/29/2014 Seasonal Influenza Virus Vac cine, Unspecified Formulation 12/28/2020,01/23/2019,12/28/2017 Seasonal Influenza, High Dos e, Trivalent, PF, IM (Fluzone HD) 01/01/2024,12/28/2020 Seasonal Influenza, PF, 6 M & above, IM , (FluLaval or Fluzone) 01/10/2018 Seasonal Influenza, Quadriva lent Hd, 65+ Yrs 01/27/2023 Seasonal Influenza, Quadriva lent, No Preserve, IM 01/10/2017,02/14/2016 Seasonal Influenza, Trivalen t, Adjuvanted, 65+ YRS, PF, (Fluad) 01/17/2019 TDAP (age 10 and older)(Boostrix) 04/21/2014 Varicella Zoster Vaccine (Adult) 04/29/2013,08/2008 Zoster Vaccine Recombinant (Shingrix) 03/11/2019 ,01/06/2019 documented as of this encounter Social History Tobacco Use Types Packs/Day Years Used Date Smoking Tobacco: Former Cigarettes 1 20 0 07/11/1950 - 07/11/1970 Smokeless Tobacco: Never Alcohol Use Standard Drinks/Week Comments Yes 5.8 (1 standard drink = 0.6 oz p ure alcohol) occasional AUDIT-C Answer Date Recorded Q1: How often do you have a drink containing alcohol? 4 or more times a week 09/06/2020 Q2: How many drinks containi ng alcohol do you have on a typical day when you are drinking? 1 or 2 Q3: How often do you have si x or more drinks on one occasion? Not asked 09/06/2020 PHQ-2 Answer Date Recorded PHQ Adult Total Score 0 03/24/2024 Hunger Vital Sign Answer Date Recorded Worried About Running Out of Food in the Last Ye ar Never true 03/30/2019 Ran Out of Food in the Last Year Never true 03/30/2019 Education Answer Date Recorded What is the highest level of school you have completed or the highest degree you have received? 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 Not on file Not on fi le Not on file documented as of this encounter Miscellaneous Notes * [facility] 1:39 PM ESTSigned Prescriptions: Disp Refills Atorvastatin Calcium 20 MG Oral Tablet (Li*90 Tab*1 Sig: take 1 tablet by mouth every morningAuthorizing Provider: SEYMOUR ROD User: MICHAEL GARCIA documented in this encounter Plan of Treatment Upcoming Encounters Date Type Department Care Team (Late st Contact Info) Description 05/18/2024 3:10 PM EST Office Visit Dermatology [facility] [place] [address] [place] [address] Isi Franklin PA-C [address] [place] [address] 06/05/2024 2:00 PM EST Office Visit Cardiology, [facility] [address] [facility] [place] [phone] Sonal Ramon CRNP [address] [place] [address] 07/07/2024 2:00 PM EDT Office Visit Hematology/Oncology [facility] [address] [place] [address] Reynaldo Richard MD [address] [facility] [place] [address] 08/12/2024 2:20 PM EDT Office Visit Neurology [facility] [address] [place], [place] [phone] Mari Powell MD [address] [place] [address] [place], [place] [id number] 12/29/2024 2:40 PM EDT Office Visit General Internal Medicine [facility] [address] [place] [address] Seymour Rod MD [address] [place] [address] [place] [address] Health Maintenance Due Date Last Done Comments Adult Wellness Visit 09/06/2021 09/06/2020 DTap/Tdap Vaccines (2 - Td or Tdap) 04/21/2024 04/21/2014 GFR 10/22/2024 10/23/2023, 04/30, 10/09/2022, Additional history exists Colonoscopy 02/08/2025 02/09/2020, 01/27, 04/05/2014, Additional history exists Depression Screening 03/24/2025 03/24/2024, 09/01/19 15 Albumin/Creatinine Ratio 05/23/2026 024, 08/27/2014, 01/23/2011 Pneumococcal Vaccine: 65+ Years Completed 08/31/2014, 06/27/2014, 01/31/2011, Additional history exists Zoster Vaccines Completed 03/11/2019, 12/28, 04/29/2013, Additional history exists RETIRED - COLONOSCOPY-EVERY 5 YRS AGES 18-100 Discontinued 02/09/2020, 02/09/2020, 04/05/2014, Additional history exists Influenza Vaccine (FLU shot) Completed 01/01/2024, 01/27/2023, 12/28/2020, Additional history exists COVID-19 Vaccine Completed 01/02/2024, 07/2023, 01/27/2023, Additional history exists HPV (Gardasil) Vaccine Aged Out No lo nger eligible based on patient's age to complete this topic Hepatitis B Vaccine Aged Out No longe r eligible based on patient's age to complete this topic MENINGOCOCCAL (MENACTRA/MENVEO) Aged Out No longer eligible based on patient's age to complete this topic documented as of this encounter Medical Devices Not on filedocumented as of this encounter Visit Diagnoses Diagnosis Hyperlipidemia with target LDL less than 130 Other and unspecified hyperlipidemia documented in this encounter Care Teams Mitochondrial Disorders Counselor Relationship Specialty Start Date End Date Seymour Rod MD [address] [place], [place] [address] PCP - General Internal Medicine 10/26/10 documented as of this encounter
--- OUTSIDE RECORDS SUMMARY | 2024-05-20 20:48 | External Medical Summary | Summary of Care ---
Author Name Unknown Organization [facility] Address [address] [facility] [address] Phone [phone] Care Team Providers Care Land Developer Name Role Phone Seymour Rod MD Primary Care Provider + Reason for Visit * Reason Onset Date Comments Medication Refill 05/07/2024 Encounter Details Date Type Department Care Team (Late st Contact Info) Description 05/07/2024 Refill General Internal Medicine [address] [place] [address] Seymour Rod MD [address] [place] [id number] Persistent atrial fibrillation (HCC) Allergies Active Allergy Reactions Criticality Noted Date Comments Ibuprofen Other (Please comment) 03/07/2011 Pt was told to,not take --allergy to lisinopril Buffered Aspirin Other (Please comment) 03/07/2011 Pt states was told to not take--allergy to lisinopril Aspirin 03/28/2015 Lisinopril Anaphylaxis High 10/26/2010 Pollen Extract 07/30/2023 Other Reaction(s): Congested Shellfish-Derived Products Nausea/vomiting 09/06/2020 documented as of this encounter (statuses as of 05/07/2024) Medications SHILPA 180 MG PO TABS 1 daily Active VITAMIN C 500 MG PO TABS one pill each day Active B-COMPLEX/B-12 PO TABS 1 tablet daily Active ACETAMINOPHEN 500 MG PO TABS as needed for pain; no dosage provided; patient reports takes rarely 4 Active PA BIOTIN 1000 MCG PO TABS 1 tablet daily Active Multiple Vitamins-Minerals (CENTRUM SILVER) Tablet Take 1 Tablet by mouth in the morning. When not taking b-complex vitamin. 6 Active Joint Health Oral Capsule Take by mouth 1 Capsule daily . Active Ofloxacin 0.3 % Otic Solution (Floxin) INSERT 6 DROPS INTO EAR TWICE A DAY FOR 7 DAYS 1 Active Gemtesa 75 MG Oral Tablet Take 1 Tablet by mouth in the morning. 1 Active Tamsulosin HCl 0.4 MG Oral Capsule (Flomax) 4 Active Sertraline HCl 50 MG Oral Tablet (Zoloft)Indicatio ns:Anxiety state take 1 tablet by mouth once daily 90 Tablet 3 4 Active Telmisartan-HCTZ 80-25 MG Oral TabletIndications :HTN, goal below 140/90 take 1 tablet by mouth every morning 90 Tablet 3 4 Active Doxazosin Mesylate 2 MG Oral Tablet (Cardura)Indicati ons:HTN, goal below 140/90 take 1 tablet by mouth once daily 90 Tablet 1 4 Active Metoprolol Tartrate 25 MG Oral Tablet (Lopressor)Indica tions:HTN, goal below 140/90,Persistent atrial fibrillation (HCC) take 1 tablet by mouth every morning and at bedtime 180 Tablet 1 4 Active Atorvastatin Calcium 20 MG Oral Tablet (Lipitor)Indicati ons:Hyperlipidemi a with target LDL less than 130 take 1 tablet by mouth every morning 90 Tablet 1 4 Active Apixaban 5 MG Oral Tablet (Eliquis)Indicati ons:Persistent atrial fibrillation (HCC) Take 1 Tablet by mouth in the morning and 1 Tablet before bedtime. 180 Tablet 1 5 Active Eliquis 5 MG Oral Tablet (Apixaban)Indicat ions:Persistent atrial fibrillation (HCC) take 1 tablet by mouth IN THE MORNING and 1 tablet BEFORE BEDTIME 180 Tablet 1 4 05/07/19 25 Discontinu ed(Refill) documented as of this encounter (statuses as of 05/07/2024) Active Problems Problem Noted Date Diagnosed Date [...] as of this encounter (statuses as of 05/07/2024) Resolved Problems Problem Noted Date Diagnosed Date [...] as of this encounter (statuses as of 05/07/2024) Immunizations Name Administration Dates Next Due COVID-19 mRNA, LNP-s, No Pre serve, 2-Dose Series ([employer]) 03/01/2021,07/11/2020,06/11/2020 COVID-19, LNP-s, No Preserve , Carlton-sucrose, Ages 12+ ([employer]) 09/13/2021 Covid-19, Mrna, Lnp-s, Pf, B ivalent, 30 Mcg, IM, 12 yrs and above ([employer]) 01/22/2022 Pneumococcal Conjugate Vacc, 13 Valent (Prevnar) 08/31/2014 Pneumococcal Polysaccharide PPV23 (Pneumovax) 06/27/2014,01/31/2011,02/27/2006 Season Influenza, Quad, PF, Adjuvanted, 65+ Yrs, IM (FLUAD) 01/06/2020 Seasonal Influenza Vac., MDV , IM, 0.5 mL (Fluzone) 01/17/2015,01/12/2014,01/29/2013,12/2011,01/25/2011 01/29/2014 Seasonal Influenza Virus Vac cine, Unspecified [...] encounter Miscellaneous Notes * Telephone Encounter - Anikte Hong [facility] - 05/07/2024 2:28 PM ESTSigned Prescriptions: Disp Refills Apixaban 5 MG Oral Tablet (Eliquis) 180 Ta*1 Sig: Take 1 Tablet by mouth in the morning and 1 Tablet before bedtime. Authorizing Provider: SEYMOUR ROD Ordering User: DELONTE, ANIKET SIDNEY * Telephone Encounter - Chrissy Barrera CPhT - 05/07/2024 1:34 PM EST Patient needs ordered today Patient is requesting a 30-day supply, pre-edited RXs as such. Please review and approve if appropriate. Pending Prescriptions: Disp Refills Apixaban 5 MG Oral Tablet (Eliquis) 60 Tab*3 Sig: Take 1 Tablet by mouth in the morning and 1 Tablet before bedtime. Last Visit: 03/24/2024 (in office), Visit date not found (telemedicine) 12/29/2024 If no future appointments scheduled, and last appointment is greater than a year ago, please schedule patient for an appointment Last date the medication was ordered: [id number] Patient Phone Numbers Labs: Lab Results Component Value Date/Time CREAT 0.6 10/23/2023 09:49 AM CREAT 0.7 11/11/2019 02:29 PM POTASSIUM 3.5 10/23/2023 09:49 AM POTASSIUM 3.7 11/11/2019 02:29 PM TSH 1.94 05/23/2023 02:38 PM TSH 2.35 01/23/2011 09:22 AM LDL 87 10/23/2023 09:49 AM LDL 89 11/11/2019 02:29 PM LDL NOT APPLICABLE 11/11/2019 02:29 PM ALT 28 10/23/2023 09:49 AM ALT 27 11/11/2019 02:29 PM HGBA1C 5.6 10/09/2022 10:42 AM HGBA1C 5.7 (H) 11/11/2019 02:29 PM documented in this encounter Plan of Treatment Upcoming Encounters Date Type Department Care Team (Late st Contact Info) Description 05/18/2024 3:10 PM EST Office Visit Dermatology [facility] [place] [address] [place], [place] [address] Isi Franklin PA-C [address] [facility] [place] [address] 06/05/2024 2:00 PM EST Office Visit Cardiology, [facility] [address] [facility] [place] [address] Sonal Ramon, MANAGER SAP [address] [facility] [place] [address] 07/07/2024 2:00 PM EDT Office Visit Hematology/Oncology [facility] [address] [place] [phone] Reynaldo Richard MD 200 [facility] [place] [address] 08/12/2024 2:20 PM EDT Office Visit Neurology [facility] [address] [place] [address] Mari Powell MD [address] [facility] [place] [address] 12/29/2024 2:40 PM EDT Office Visit General Internal Medicine [facility] [address] [facility] [address] [place] [address] Seymour Rod MD 200 [place] [address] Health Maintenance Due Date Last Done Comments Adult Wellness Visit 09/06/2021 09/06/2020 DTap/Tdap Vaccines (2 - Td or Tdap) 04/21/2024 04/21/2014 GFR 10/22/2024 10/23/2023, 04/30, 10/09/2022, Additional history exists Colonoscopy 02/08/2025 02/09/2020, 01/27, 04/05/2014, Additional history exists Depression Screening 03/24/2025 03/24/2024, 09/01/19 15 Albumin/Creatinine Ratio 05/23/2026 024, 08/27/2014, 01/23/2011 Pneumococcal Vaccine: 50+ Years Completed 08/31/2014, 06/27/2014, 01/31/2011, Additional history [...] as of this encounter Visit Diagnoses Diagnosis Persistent atrial fibrillation (HCC) Atrial fibrillation documented in this encounter Care Teams Land Developer Relationship Specialty Start Date End Date Seymour Rod MD [address] [place] [address] PCP - General Internal Medicine 10/26/10 documented as of this encounter
--- OUTSIDE RECORDS SUMMARY | 2024-05-20 20:49 | External Medical Summary | Summary of Care ---
Author Name Unknown Organization [facility] Address [address] [facility] [place] [address] Phone [phone] Care Team Providers Care Web Site Specialist Name Role Phone Seymour Mcgowan MD Primary Care Provider + Reason for Visit * Reason Onset Date Comments Medical Records Request 02/14/2024 Encounter Details Date Type Department Care Team (Late st Contact Info) Description 02/14/2024 Telephone General Internal Medicine [facility] [address] [facility] [place] [address] Seymour Mcgowan [facility] [address] Medical Records Request Allergies Active Allergy Reactions Criticality Noted Date Comments Ibuprofen Other (Please comment) 03/07/2011 Pt was told to,not take --allergy to lisinopril Buffered Aspirin Other (Please comment) 03/07/2011 Pt states was told to not take--allergy to lisinopril Aspirin 03/28/2015 Lisinopril Anaphylaxis High 10/26/2010 Shellfish-Derived Products Nausea/vomiting 09/06/2020 documented as of this encounter (statuses as of 02/14/2024) Medications Medication Sig Dispensed Refills Start Date End Date Status SHILPA 180 MG PO TABS 1 daily Active VITAMIN C 500 MG PO TABS one pill each day Active B-COMPLEX/B-12 PO TABS 1 tablet daily Active ACETAMINOPHEN 500 MG PO TABS as needed for pain; no dosage provided; patient reports takes rarely 02/22/2014 Active PA BIOTIN 1000 MCG PO TABS 1 tablet daily Active Multiple Vitamins-Minerals (CENTRUM SILVER) Tablet Take 1 Tablet by mouth in the morning. When not taking b-complex vitamin. 08/10/2015 Active Joint Health Oral Capsule Take by mouth 1 Capsule daily . Active Ofloxacin 0.3 % Otic Solution (Floxin) INSERT 6 DROPS INTO EAR TWICE A DAY FOR 7 DAYS 09/23/2020 Active Gemtesa 75 MG Oral Tablet Take 1 Tablet by mouth in the morning. 03/30/2021 Active Atorvastatin Calcium 20 MG Oral Tablet (Lipitor)Indications: Hyperlipidemia with target LDL less than 130 Take 1 Tablet by mouth daily. 90 Tablet 1 02/26/2023 Active Eliquis 5 MG Oral Tablet (Apixaban)Indications :Persistent atrial fibrillation (HCC) take 1 tablet by mouth IN THE MORNING and 1 tablet BEFORE BEDTIME 180 Tablet 1 04/29/2023 Active Tamsulosin HCl 0.4 MG Oral Capsule (Flomax) 05/20/2023 Act kathya Metoprolol Tartrate 25 MG Oral Tablet (Lopressor)Indication s:HTN, goal below 140/90,Persistent atrial fibrillation (HCC) take 1 tablet by mouth every morning and at bedtime 180 Tablet 1 10/14/2023 Active Sertraline HCl 50 MG Oral Tablet (Zoloft)Indications:A nxiety state take 1 tablet by mouth once daily 90 Tablet 3 12/09/2023 Active Telmisartan-HCTZ 80-25 MG Oral TabletIndications:HTN , goal below 140/90 take 1 tablet by mouth every morning 90 Tablet 3 12/18/2023 Active Doxazosin Mesylate 2 MG Oral Tablet (Cardura)Indications: HTN, goal below 140/90 take 1 tablet by mouth once daily 90 Tablet 1 01/11/2024 Active documented as of this encounter (statuses as of 02/14/2024) Active Problems Problem Noted Date Diagnosed Date MGUS (monoclonal gammopathy of unknown significa nce) 08/28/2023 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 Ataxia 05/23/2023 Chronic bilateral back pain 11/06/2021 PAF (paroxysmal atrial fibrillation) 04/11/2021 Diastolic dysfunction 11/20/2020 Mild mitral regurgitation 12/11/2019 History of nonmelanoma skin cancer 02/19/2017 Overview: Hx of BCC on right cheek - 2014 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 Hx of BCC on right posterior shoulder - 1985 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 History of left mastoidectomy 03/01/2016 Urge incontinence of urine 02/28/2015 Overview: From prostate cancer surgery Mixed hearing loss, unilateral 12/15/2012 Otitis externa, chronic 12/15/2012 Mixed hyperlipidemia 04/16/2011 Overview: ICD-10 update of inactive term History of prostate cancer 04/16/2011 HTN, goal below 140/90 10/26/2010 Allergic rhinitis 10/26/2010 Anxiety state 10/26/2010 documented as of this encounter (statuses as of 02/14/2024) Resolved Problems Problem Noted Date Diagnosed Date Resolved Date Persistent atrial fibrillation 11/17/2020 04/11/2021 Prediabetes 06/11/2017 08/16/2017 Overview: Per Prediabetes protocol #1 Neoplasm of uncertain behavior of skin 12/29/2013 02/19/2017 Actinic keratosis 12/29/2013 02/19/2017 History of basal cell carcinoma 12/29/2013 02/19/2017 History of squamous cell carcinoma 12/29/2013 02/19/2017 Snoring 12/15/2012 08/16/2017 Overview: ICD-10 update of inactive term Excess wax in ear 12/15/2012 08/16/2017 Deviated nasal septum 12/15/20122018 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, including shoulder 01/31/2011 02/19/2017 Hearing loss 10/26/2010 08/16/2017 Other malignant neoplasm of skin of upper limb, including shoulder 10/26/2010 01/31/2011 Malignant neoplasm of skin of lip 10/26/2010 Overview: ICD-10 update of inactive term 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 10/26/2010 documented as of this encounter (statuses as of 02/14/2024) Immunizations Name Administration Dates Next Due COVID-19 mRNA, LNP-s, No Pre serve, 2-Dose Series (GalaDo) 03/01/2021,07/11/2020,06/11/2020 COVID-19, LNP-s, No Preserve , Carlton-sucrose, Ages 12+ (Pfizer) 09/13/2021 Covid-19, Mrna, Lnp-s, Pf, B ivalent, 30 Mcg, IM, 12 yrs and above (Pfizer) 01/22/2022 Pneumococcal Conjugate Vacc, 13 Valent (Prevnar) [...] Date Recorded PHQ Adult Total Score 0 01/31/2023 Hunger Vital Sign Answer Date Recorded Worried About Running Out of Food in the Last Ye ar Never true 03/30/2019 Ran Out of Food in the Last Year Never true 03/30/2019 Utilities Answer Date Recorded Do you have trouble paying y our heating, water, or electric bill? (Adult - for ages 18 years and over) Not on file 10/15/2023 Is your family able to pay t he heat, water, or electric bill? (Household - for ages 0-17 years) Not on file 10/15/2023 Does your family have access to good internet? (Household - for ages 0-17 years) Not on file 10/15/2023 Social Connections Answer Date Recorded How often do you feel lonely or isolated from those around you? (Adult - for ages 18 years and over) Not on file 10/15/2023 Education Answer Date Recorded What is the highest level of school you have completed or the highest degree you have received? Professional school degree (e.g., , DDS, DVM, JENARO) 05/23/2023 Sex and Gender Information Value Date Recorded Sex Assigned at Male 03/30/2019 1:09 PM EST Gender Identity Male 03/30/2019 1:09 PM EST Sexual Orientation Choose not to disclose 2018 1:09 PM EST Job Start Date Occupation Industry Not on file Not on file Not on file documented as of this encounter Miscellaneous Notes * Telephone Encounter - Radhames Smith OSA - 02/14/2024 11:39 AM EDT Record Request received from [facility] - forwarded to HIM ([phone]) via IODocDoc documented in this encounter Plan of Treatment Upcoming Encounters Date Type Department Care Team (Late st Contact Info) Description 03/24/2024 11:00 AM EST Office Visit General Internal Medicine [facility] [address] [facility] [place], [place] [address] Seymour Mcgowan MD [address] [facility] [place] [address] 05/18/2024 3:10 PM EST Office Visit Dermatology [facility] [place] [address] [place] [address] Isi Franklin PA-C [address] [place] [address] 07/07/2024 1:45 PM EDT Office Visit Hematology/Oncology [facility] [address] [facility] [place], [place] [phone] Reynaldo Richard MD [address] [place] [address] [place] [address] 08/06/2024 2:20 PM EDT Office Visit Neurology [facility] [address] [facility] [place], [place] [address] Mari Powell MD [address] [place] [address] [place] [address] Health Maintenance Due Date Last Done Comments Adult Wellness Visit 09/06/2021 09/06/2020 COVID-19 Vaccine ( season) 2023 01/22/2022, 09/13/2021, 03/01/2021, Additional history exists Depression Screening 02/01/2024 01/31/2023, 09/01/19 15 DTap/Tdap Vaccines (2 - Td or Tdap) 04/21/2024 04/21/2014 GFR 10/22/2024 10/23/2023, 04/30, 10/09/2022, Additional history exists Colonoscopy 02/08/2025 02/09/2020, 01/27, 04/05/2014, Additional history exists Albumin/Creatinine Ratio 05/23/2026 024, 08/27/2014, 01/23/2011 Pneumococcal Vaccine: 65+ Years Completed 08/31/2014, 06/27/2014, 01/31/2011, Additional history exists Zoster Vaccines Completed 03/11/2019, 12/28, 04/29/2013, Additional history exists RETIRED - COLONOSCOPY-EVERY 5 YRS AGES 18-100 Discontinued 02/09/2020, 02/09/2020, 04/05/2014, Additional history exists Influenza Vaccine (FLU shot) Completed 01/01/2024, 01/27/2023, 12/28/2020, Additional history exists HPV (Gardasil) Vaccine Aged [...] Not on filedocumented as of this encounter Care Teams Web Site Specialist Relationship Specialty Start Date End Date Seymour Mcgowan MD [address] [place] [address] PCP - General Internal Medicine 10/26/10 documented as of this encounter
--- OUTSIDE RECORDS SUMMARY | 2024-05-20 20:49 | External Medical Summary | Summary of Care ---
Author Name Unknown Organization [facility] Address [address] [facility] [place] [address] Phone [phone] Care Team Providers Care Oil Prospecting Observer Name Role Phone Seymour Mcgowan MD Primary Care Provider + Reason for Visit * Reason Comments Follow Up Encounter Details Date Type Department Care Team (Late st Contact Info) Description 02/04/2024 2:20 PM EDT Office Visit Neurology [facility] [address] [facility] [place] [address] Mari Powell MD [address] [facility] [place] [address] Idiopathic progressive neuropathy* Allergies Active Allergy Reactions Criticality Noted Date Comments Ibuprofen Other (Please comment) 03/07/2011 Pt was told to,not take --allergy to lisinopril Buffered Aspirin Other (Please comment) 03/07/2011 Pt states was told to not take--allergy to lisinopril Aspirin 03/28/2015 Lisinopril Anaphylaxis High 10/26/2010 Shellfish-Derived Products Nausea/vomiting 09/06/2020 documented as of this encounter (statuses as of 02/04/2024) Medications Medication Sig Dispensed Refills Start Date [...] as of this encounter (statuses as of 02/04/2024) Active Problems Problem Noted Date Diagnosed Date [...] as of this encounter (statuses as of 02/04/2024) Resolved Problems Problem Noted Date Diagnosed Date [...] as of this encounter (statuses as of 02/04/2024) Immunizations Name Administration Dates Next Due COVID-19 mRNA, LNP-s, No Pre serve, 2-Dose Series (Webcom) 03/01/2021,07/11/2020,06/11/2020 COVID-19, LNP-s, No Preserve , Carlton-sucrose, [...] 0 07/11/1949 - 07[birth year]11[birth year]1970 Smokeless Tobacco: Never Tobacco Cessation:Counseling Given: Not Answered Alcohol Use Standard Drinks/Week Comments Yes 5.8 [...] on file documented as of this encounter Last Filed Vital Signs Vital Sign Reading Time Taken Comments Blood Pressure 124/82 02/04/2024 2:27 PM EDT Pulse 70 02/04/2024 2:27 PM EDT Temperature 37.1 C (98.7 F) 02/04/2024 2:27 PM ED T Respiratory Rate 18 02/04/2024 2:27 PM EDT Oxygen Saturation 95% 02/04/2024 2:27 PM EDT Inhaled Oxygen Concentration - - Weight 120.2 kg (265 lb) 02/04/2024 2:27 PM EDT Height - - Body Mass Index 38.02 08/28/2023 2:49 PM EDT documented in this encounter Progress Notes * Mari Powell MD - 02/04/2024 2:38 PM EDT Progress Note - Neurology [facility] [address] [place] [address] NAME: Glen Carmen Date of : 1940 Date of Visit: 02/04/24 Chief Complaint: Chief Complaint Patient presents with Follow Up Subjective: f/u pn; PT helping balance Neuro ROS: neg for stroke sx HOME MEDICATIONS : Current Outpatient Medications Medication Sig Dispense Refill VITAMIN C 500 MG PO TABS one pill each day ACETAMINOPHEN 500 MG PO TABS as needed for pain; no dosage provided; patient reports takes rarely PA BIOTIN 1000 MCG PO TABS 1 tablet daily Multiple Vitamins-Minerals (CENTRUM SILVER) Tablet Take 1 Tablet by mouth in the morning. When not taking b-complex vitamin. Joint Health Oral Capsule Take by mouth 1 Capsule daily . Ofloxacin 0.3 % Otic Solution (Floxin) INSERT 6 DROPS INTO EAR TWICE A DAY FOR 7 DAYS Gemtesa 75 MG Oral Tablet Take 1 Tablet by mouth in the morning. Atorvastatin Calcium 20 MG Oral Tablet (Lipitor) Take 1 Tablet by mouth daily. 90 Tablet 1 Eliquis 5 MG Oral Tablet (Apixaban) take 1 tablet by mouth IN THE MORNING and 1 tablet BEFORE BEDTIME 180 Tablet 1 Tamsulosin HCl 0.4 MG Oral Capsule (Flomax) Metoprolol Tartrate 25 MG Oral Tablet (Lopressor) take 1 tablet by mouth every morning and at bedtime 180 Tablet 1 Sertraline HCl 50 MG Oral Tablet (Zoloft) take 1 tablet by mouth once daily 90 Tablet 3 Telmisartan-HCTZ 80-25 MG Oral Tablet take 1 tablet by mouth every morning 90 Tablet 3 Doxazosin Mesylate 2 MG Oral Tablet (Cardura) take 1 tablet by mouth once daily 90 Tablet 1 SHILPA 180 MG PO TABS 1 daily (Patient not taking: Reported on 08/28/2023) B-COMPLEX/B-12 PO TABS 1 tablet daily (Patient not taking: Reported on 08/28/2023) No current facility-administered medications for this visit. Review of patient's allergies indicates: Allergen Reactions Lisinopril Anaphylaxis Advil [Ibuprofen] Other (Please comment) Pt was told to,not take --allergy to lisinopril Asa Buff (Mag [Buffered Aspirin] Other (Please comment) Pt states was told to not take--allergy to lisinopril Aspirin Shellfish-Derived Products Nausea/vomiting PHYSICAL EXAMINATION: Vital Signs: BP 124/82 | Pulse 70 | Temp 37.1 C (98.7 F) | Resp 18 | Wt 120.2 kg (265 lb) | SpO2 95% | BMI 38.02 kg/m | BSA 2.44 m EXAM: Constitutional: appearance normally developed, well nourished. Head and Face: normocephalic and atraumatic Cardiovascular: heart sounds are 2/4. Rhythm is afib NEUROLOGIC EXAM Higher integrative is obviously intact. Cranial Nerves: CN 2 - no visual defect on confrontation and pupils round, equal, reactive to light CN 3, 4, 6 - extra-ocular movements intact and no nystagmus CN 7 - no facial asymmetry CN 9, 10 - palate symmetric CN 12 - tongue midline Motor: Normal, without pronator drift; with EHL 4/5 Coordination: Normal finger to nose and rapid alternating movement of lower extremities IMPRESSION / PLAN: PN stable; documented in this encounter Nursing Notes * Milagro Fields RN - 02/04/2024 2:33 PM EDT Follow up visit today. Pt states he is doing well. Walks with cane. documented in this encounter Plan of Treatment Upcoming Encounters Date Type Department Care Team (Late st Contact Info) Description 03/24/2024 11:00 AM EST Office Visit General Internal Medicine [facility] [address] [place] [address] Seymour Mcgowan MD [address] [place] [address] [address] 05/18/2024 3:10 PM EST Office Visit Dermatology [facility], [address] [place] [address] Isi [place] PA-C [address] [facility] [place] [address] 07/07/2024 1:45 PM EDT Office Visit Hematology/Oncology [facility] [place] [address] [facility] [place] [phone] Reynaldo Richard MD [address] [facility] [place] [address] 08/06/2024 2:20 PM EDT Office Visit Neurology [facility] [place] [address] [facility] [place] [address] Mari Powell MD [address] [facility] [place] [address] Health Maintenance Due Date Last Done Comments [...] as of this encounter Visit Diagnoses Diagnosis Idiopathic progressive neuropathy- Primary Idiopathic progressive polyneuropathy documented in this encounter Care Teams Oil Prospecting Observer Relationship Specialty Start Date End Date Seymour Mcgowan MD [address] [place] [address] PCP - General Internal Medicine 10/26/10 documented as of this encounter"
--- OUTSIDE RECORDS SUMMARY | 2024-05-20 20:49 | External Medical Summary | Summary of Care ---
Author Name Unknown Organization [facility] Address [address] [place] [address] Phone [phone] Care Team Providers Care Coat Operator Insulator Name Role Phone Seymour Mcgowan MD Primary Care Provider + Reason for Referral * Evaluate & Treat - Unlimited Visits (Within 30 days (routine)) - Authorized Specialty Diagnoses / Procedures Referred By Contact Referred To Contact Cardiovascular Medicine / Cardiology Diagnoses PAF (paroxysmal atrial fibrillation) (HCC) Seymour Mcgowan MD [address] [facility] [place] [address] Phone: tel: fax: Referral ID Status Reason Start Date Expiration Date Visits Requested Visits Authorized [id number] Authorized Specialty Services Required 4 [phone] Question Answer Referral Priority Within 30 days (routine) Where should this appointment be scheduled? [facility] To which of the following clinics are you referring your patient? General Cardiology Clinic Reason for Visit * Reason Comments Re-Check Encounter Details Date Type Department Care Team (Late st Contact Info) Description 03/24/2024 11:00 AM EST Office Visit General Internal Medicine [facility] [address] [place] [address] Seymour Mcgowan MD [address] [place] [address] HTN, goal below 140/90*; PAF (paroxysmal atrial fibrillation) (HCC); Idiopathic progressive neuropathy; History of left mastoidectomy; Anxiety state; Bilateral impacted cerumen; Mild mitral regurgitation; Skin abrasion; History of prostate cancer Allergies Active Allergy Reactions Criticality Noted Date Comments Ibuprofen Other (Please comment) 03/07/2011 Pt was told to,not take --allergy to lisinopril Buffered Aspirin Other (Please comment) 03/07/2011 Pt states was told to not take--allergy to lisinopril Aspirin 03/28/2015 Lisinopril Anaphylaxis High 10/26/2010 Pollen Extract 07/30/2023 Other Reaction(s): Congested Shellfish-Derived Products Nausea/vomiting 09/06/2020 documented as of this encounter (statuses as of 03/24/2024) Medications SHILPA 180 MG PO TABS 1 [...] by mouth in the morning. 1 Active Atorvastatin Calcium 20 MG Oral Tablet (Lipitor)Indicati ons:Hyperlipidemi a with target LDL less than 130 Take 1 Tablet by mouth daily. 90 Tablet 1 3 Active Eliquis 5 MG Oral Tablet (Apixaban)Indicat ions:Persistent atrial fibrillation (HCC) take 1 tablet by mouth IN THE MORNING and 1 tablet BEFORE BEDTIME 180 Tablet 1 4 Active Tamsulosin HCl 0.4 MG Oral Capsule (Flomax) 4 Active Metoprolol Tartrate 25 MG Oral Tablet (Lopressor)Indica tions:HTN, goal below 140/90,Persistent atrial fibrillation (HCC) take 1 tablet by mouth every morning and at bedtime 180 Tablet 1 4 Active Sertraline HCl 50 MG Oral [...] once daily 90 Tablet 1 4 Active documented as of this encounter (statuses as of 03/24/2024) Active Problems Problem Noted Date Diagnosed Date [...] as of this encounter (statuses as of 03/24/2024) Resolved Problems Problem Noted Date Diagnosed Date [...] as of this encounter (statuses as of 03/24/2024) Immunizations Name Administration Dates Next Due COVID-19 mRNA, LNP-s, No Pre serve, 2-Dose Series (Shopline) 03/01/2021,07/11/2020,06/11/2020 COVID-19, LNP-s, No Preserve , Carlton-sucrose, [...] Sign Reading Time Taken Comments Blood Pressure 122/80 03/24/2024 11:25 AM EST Pulse 62 03/24/2024 11:25 AM EST Temperature 36.9 C (98.5 F) 03/24/2024 11:[address] Respiratory Rate - - Oxygen Saturation 97% 03/24/2024 11:25 AM EST Inhaled Oxygen Concentration - - Weight 119.1 kg (262 lb 8 oz) 03/24/2024 11:25 A M EST Height 177.8 cm (5' 10") 03/24/2024 11:25 AM EST Body Mass Index 37.66 03/24/2024 11:25 AM EST documented in this encounter Progress Notes * Seymour Mcgowan MD - 03/24/2024 11:42 AM EST Chief Complaint Patient presents with Re-Check SUBJECTIVE: Glen Carmen is a 83 year old male with PMH as below who presents for follow up htn, paf, neuropathy. No cp, sob ,corral. Feels good overall, walking with pole, did pt which he feels helped neuropathy. No c/o falls. Sees urology at [facility] for h/o prostate cancer, urinary issues. Also sees ent there ,duefor cerumen clean. Does have small scrape for week left weinberg, did clean it and feels better, but persistent. No n/v/d. 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 Review of patient's allergies indicates: Allergen Reactions Lisinopril Anaphylaxis Advil [Ibuprofen] Other (Please comment) Pt was told to,not take --allergy to lisinopril Asa Buff (Mag [Buffered Aspirin] Other (Please comment) Pt states was told to not take--allergy to lisinopril Aspirin Pollen Extract Other Reaction(s): Congested Shellfish-Derived Products Nausea/vomiting Health Maintenance Due Topic Date Due Adult Wellness Visit 09/06/2021 ROS: CONSTITUTIONAL: No fevers, sweats, or chills PULMONARY: No cough, sputum, or hemoptysis, No wheezing, No rales, No shortness of breath, and No recent change in breathing CARDIOVASCULAR: No chest pain, No shortness of breath, No dyspnea on exertion, No orthopnea, No palpitations, and No syncope GASTROINTESTINAL: No abdominal pain, No change in bowel habits, No significant heartburn, No significant change in appetite, No nausea, vomiting, diarrhea, or constipation, No hematemesis, No blood in stools or black tarry stools, No abdominal bloating or early satiety, and No dysphagia ALL OTHER SYSTEMS NEGATIVE I reviewed social, PMH, PSH, and family history and updated where needed. Social History Socioeconomic History Marital status: Spouse name: Nelia Number of children: 0 Years of education: Not on file Highest education level: Professional school degree (e.g., MD, DDS, DVM, JENARO) Occupational History Occupation: academic - geography/topogrophy Tobacco Use Smoking status: Former Current packs/day: 0.00 Average packs/day: 1 pack/day for 20.0 years (20.0 ttl pk-yrs) Types: Cigarettes Start date: 07/11/1950 Quit date: 07/11/1970 Years since quittin.7 Smokeless tobacco: Never Vaping Use Vaping status: Never Used Substance and Sexual Activity Alcohol use: Yes Alcohol/week: 5.8 standard drinks of alcohol Types: 7 5 oz of wine per week Comment: occasional Drug use: No Sexual activity: Not Currently Partners: Female Other Topics Concern Not on file Social History Narrative Not on file Social Needs Financial Resource Strain: Not on file Food Insecurity: No Food Insecurity (03/30/2019) Hunger Vital Sign Worried About Running Out of Food in the Last Year: Never true Ran Out of Food in the Last Year: Never true Transportation Needs: Not on file Social Connections: Not on file Housing Stability: Not on file Past Medical History: Diagnosis Date Allergic rhinitis 10/26/2010 Anxiety state 10/26/2010 Benign neoplasm of colon 03/07/2011 internal hemorrhoids, polyps x5 , one 15mm polyp in rectum, path shows adenomatous and villous tissue repeat [id number] Deviated nasal septum 12/15/2012 Diastolic dysfunction 11/20/2020 HTN, goal below 140/90 10/26/2010 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 Mild mitral regurgitation 12/11/2019 Other and unspecified malignant neoplasm of skin of lip Persistent atrial fibrillation (HCC) 11/17/2020 Prostate cancer (HCC) 04/16/2011 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, including shoulder 01/31/2011 Urge incontinence of urine 02/28/2015 From prostate cancer surgery Past Surgical History: Procedure Laterality Date CATARACT SURGERY,COMPLEX Bilateral 2022 COLONOSCOPY W/ LESION REMOVAL, SNARE 03/07/2011 internal hemorrhoids, polyps x5 , one 15mm polyp in rectum, path shows adenomatous and villous tissue repeat [id number] COLONOSCOPY, DIAGNOSTIC (RECTUM) 04/05/2014 hyperplastic polyps, diverticulosis, repeat 5 yrs/COLONOSCOPY FLEXIBLE PROXIMAL DIAGNOSTIC performed by Talisha Willis DO at ENDOSCOPY [facility] COLONOSCOPY, DIAGNOSTIC (RECTUM) 02/09/2020 normal bx / COLONOSCOPY FLEXIBLE PROXIMAL DIAGNOSTIC performed by Talisha Willis DO at ENDOSCOPY [facility] INSERTION OF LENS PROSTHESIS Bilateral MASTOID SURG REVISION, MOD RADICAL 1974 MOHS, 1ST STAGE; FACE, HANDS, FEET, NERVE NEEDLE/PUNCH BIOPSY OF PROSTATE 04/09/2011 Prostate,Needle/Punch Biopsy positive REMOVE TONSILS & ADENOIDS, UNDER 12 1949 REPAIR INITIAL INGUINAL HERNIA REDUCIBLE AGE 5 OR MORE 1964 Inguianl hernia Repair, age 5+ yr VASC DUPLEX VENOUS LE UNILAT Left 04/10/2019 no DVT, has mai's cyst Family History Problem Relation Name Age of Onset Heart Disorder Mother Cancer Father Colon Cancer Aunt (Unspecified) gallbladder OBJECTIVE: PHYSICAL EXAM: BP 122/80 (BP Site: Left Arm, BP Position: Sitting, BP Cuff Size: Regular) | Pulse 62 | Temp 98.5 F (36.9 C) (Tympanic) | Ht 5' 10" (1.778 m) | Wt 262 lb 8 oz (119.1 kg) | SpO2 97% | BMI 37.66 kg/m | BSA 2.43 m General: alert, healthy, and no distress Head: Normocephalic, No masses, lesions, or abnormalities Eye Exam: conjunctiva are pink and non-injected, sclera clear Ears: External ears normal, cerumen bilaterally Heart: regular rate & rhythm, no gallops, PMI non-displaced, S-1 normal, S-2 normal, and I/ HSM Lungs: normal respiratory rate and rhythm, lungs clear to auscultation Extremities: no clubbing, no cyanosis, trace edema left ankle with chronic venous changes, small abrasion w/o bleeding warmth left anterior weinberg Psych: normal affect, no flight of ideas or tangential thought, good eye contact, no pressured speech I reviewed last lipid, psa ASSESSMENT: (I10) HTN, goal below 140/90 (primary encounter diagnosis) (I48.0) PAF (paroxysmal atrial fibrillation) (HCC) (G60.3) Idiopathic progressive neuropathy (Z90.89) History of left mastoidectomy (F41.1) Anxiety state (H61.23) Bilateral impacted cerumen (I34.0) Mild mitral regurgitation (T14.8XXA) Skin abrasion (Z85.46) History of prostate cancer PLAN: HTN, goal below 140/90 (Primary) - COMPREHENSIVE METABOLIC PANEL; Future; Expected date: 09/21/2024 - LIPID PANEL WITH DIRECT LDL IF TG IS HIGH; Future; Expected date: 09/21/2024 Cont telmisartan, hctz, metoprolol, doxazosin PAF (paroxysmal atrial fibrillation) (HCC) - CARDIOLOGY REFERRAL OP - COMPREHENSIVE METABOLIC PANEL; Future; Expected date: 09/21/2024 - LIPID PANEL WITH DIRECT LDL IF TG IS HIGH; Future; Expected date: 09/21/2024 Cont metoprolol, apixiban Idiopathic progressive neuropathy Seems stable Cont pole, neurology History of left mastoidectomy Sees ent Anxiety state Cont sertraline Bilateral impacted cerumen He will follow up ent Mild mitral regurgitation No symptoms F/u cardiology, t/c echo 5 years from last Skin abrasion Dressed by VICKY today with bandage Cont local wound care, will call for warmth, fevers, discharge t/c abx and if not gone in 2-3 weekswill let me know t/c wound center Cont compression History of prostate cancer - PSA; Future; Expected date: 09/21/2024 Sees urology Follow Up: Return in about 6 months (around 09/21/2024), or if symptoms worsen or fail to improve, for Fasting Labs 2-5 Days Before Next Visit. | For: Fasting Labs 2-5 Days Before Next Visit Seymour Mcgowan MD documented in this encounter Nursing Notes * Lavonne Patel, CHUNG - 03/24/2024 11:24 AM EST Glen Carmen presents for 6 month recheck. Medications & HM reviewed. documented in this encounter Plan of Treatment Upcoming Encounters Date Type Department Care Team (Late st Contact Info) Description 05/18/2024 3:10 PM EST Office Visit Dermatology [facility] [place] [address] [place] [address] Isi Franklin PA-C [address] [facility] [place] [address] 06/05/2024 2:00 PM EST Office Visit Cardiology, [facility] [address] [facility] [place] [address] Sonal Ramon CRNP [address] [place] [address] 07/07/2024 2:00 PM EDT Office Visit Hematology/Oncology [facility] [address] [facility] [place] [id number] Reynaldo Richard MD [address] [facility] [place] [address] 08/12/2024 2:20 PM EDT Office Visit Neurology [facility] [address] [facility] [address] [place] [address] Mari Powell MD [address] [place] [address] [place] [address] 12/29/2024 2:40 PM EDT Office Visit General Internal Medicine [facility] [address] [facility] [place] [address] Seymour Mcgowan MD [address] [facility] [place] [address] Scheduled Orders Name Type Priority Associated Diagnoses Orde r Schedule COMPREHENSIVE METABOLIC PANEL Lab Routine HTN, goal below 140/90 PAF (paroxysmal atrial fibrillation) (HCC) Expected: 09/21/2024 (Approximate), Expires: 03/24/2025 LIPID PANEL WITH DIRECT LDL IF TG IS HIGH Lab Routine HTN, goal below 140/90 PAF (paroxysmal atrial fibrillation) (HCC) Expected: 09/21/2024, Expires: 03/24/2025 PSA Lab Routine History of prostate cancer Expected: 09/21/2024 (Approximate), Expires: 03/24/2025 Scheduled Referrals Name Type Priority Associated Diagnoses Orde r Schedule CARDIOLOGY REFERRAL OP Referral Within 30 days (routine) PAF (paroxysmal atrial fibrillation) (HCC) Ordered: 03/24/2024 Health Maintenance Due Date Last Done Comments [...] as of this encounter Visit Diagnoses Diagnosis HTN, goal below 140/90- Primary Unspecified essential hypertension PAF (paroxysmal atrial fibrillation) (HCC) Atrial fibrillation Idiopathic progressive neuropathy Idiopathic progressive polyneuropathy History of left mastoidectomy Other postprocedural status Anxiety state Anxiety state, unspecified Bilateral impacted cerumen Impacted cerumen Mild mitral regurgitation Mitral valve disorders Skin abrasion Abrasion or friction burn of other, multiple, and unspecified sites, without mention of infection History of prostate cancer Personal history of malignant neoplasm of prostate documented in this encounter Care Teams Coat Operator Insulator Relationship Specialty Start Date End Date Seymour Mcgowan MD [address] [facility] [place], [place] [address] PCP - General Internal Medicine 10/26/10 documented as of this encounter
--- OUTSIDE RECORDS SUMMARY | 2024-05-20 20:49 | External Medical Summary | Summary of Care ---
Author Name Unknown Organization [facility] Address [address] [facility] [address] Phone [phone] Care Team Providers Care Motor Racer Name Role Phone Seymour Rod MD Primary Care Provider + Reason for Visit * Reason Comments eRx-Medication Refill Encounter Details Date Type Department Care Team (Late st Contact Info) Description 04/03/2024 Refill General Internal Medicine [facility] [address] [facility] [place] [address] Seymour Rod MD [address] [place] [address] HTN, goal below 140/90; Persistent atrial fibrillation (HCC) Allergies Active Allergy [...] as of this encounter (statuses as of 04/04/2024) Medications SHILPA 180 MG PO TABS 1 [...] mouth in the morning. 03/30/20 21 Active Atorvastatin Calcium 20 MG Oral Tablet (Lipitor)Indicat ions:Hyperlipide isiah with target LDL less than 130 Take 1 Tablet by mouth daily. 90 Tablet 1 02/27/20 23 Active Eliquis 5 MG Oral Tablet (Apixaban)Indica [...] bedtime 180 Tablet 1 04/04/20 24 Active Metoprolol Tartrate 25 MG Oral Tablet (Lopressor)Indic ations:HTN, goal below 140/90,Persisten t atrial fibrillation (HCC) take 1 tablet by mouth every morning and at bedtime 180 Tablet 1 10/14/19 24 024 Discontinued documented as of this encounter (statuses as of 04/04/2024) Active Problems Problem Noted Date Diagnosed Date [...] as of this encounter (statuses as of 04/04/2024) Resolved Problems Problem Noted Date Diagnosed Date [...] as of this encounter (statuses as of 04/04/2024) Immunizations Name Administration Dates Next Due COVID-19 mRNA, LNP-s, No Pre serve, 2-Dose Series ([employer]X) 03/01/2021,07/11/2020,06/11/2020 COVID-19, LNP-s, No Preserve , Carlton-sucrose, Ages 12+ (Pfizer) 09/13/2021 Covid-19, Mrna, Lnp-s, Pf, B ivalent, 30 Mcg, IM, 12 yrs and above (UNX) 01/22/2022 Pneumococcal Conjugate Vacc, 13 Valent (Prevnar) 08/31/2014 Pneumococcal Polysaccharide PPV23 (Pneumovax) 06/27/2014,01/31/2011,02/27/2006 Season Influenza, Quad, PF, Adjuvanted, 65+ Yrs, IM (FLUAD) 01/06/2020 Seasonal Influenza Vac., MDV , IM, 0.5 mL (Fluzone) 01/17/2015,01/12/2014,01/29/2013,1012/2011,01/25/2011 01/29/2014 Seasonal Influenza Virus Vac cine, Unspecified [...] encounter Miscellaneous Notes * Telephone Encounter - Juliane Herman [facility] - 04/04/2024 7:15 PM ESTSigned Prescriptions: Disp Refills Metoprolol Tartrate 25 MG Oral Tablet (Lop*180 Ta*1 Sig: take 1 tablet by mouth every morning and at bedtimeAuthorizing Provider: SEYMOUR ROD User: JULIANE HERMAN documented in this encounter Plan of Treatment Upcoming Encounters Date Type Department Care Team (Late st Contact Info) Description 05/18/2024 3:10 PM EST Office Visit Dermatology [facility] [place] [address] [place] [address] Isi Franklin PA-C [address] [place] [address] 06/05/2024 2:00 PM EST Office Visit Cardiology, [facility] [address] [facility] [facility] [place] [address] Sonal Ramon CRNP [address] [facility] [place] [id number] 07/07/2024 2:00 PM EDT Office Visit Hematology/Oncology [facility] [address] [place] [phone] Reynaldo Richard MD [address] [facility] [place] [address] 08/12/2024 2:20 PM EDT Office Visit Neurology [facility] [address] [place] [address] Mari Powell MD [facility] [address] [place] [address] 12/29/2024 2:40 PM EDT Office Visit General Internal Medicine [facility] [address] [place] [address] Seymour Rod MD [address] [place] [address] Health Maintenance Due Date Last Done Comments [...] encounter Visit Diagnoses Diagnosis HTN, goal below 140/90 Unspecified essential hypertension Persistent atrial fibrillation (HCC) Atrial fibrillation documented in this encounter Care Teams Motor Racer Relationship Specialty Start Date End Date Seymour Rod MD [address] [place] [address] PCP - General Internal Medicine 10/26/10 documented as of this encounter
[2024-05-20] MEDS: APIXABAN 5 MG TABLET PO SCH (21:31)
[2024-05-20] MEDS: ATORVASTATIN 20 MG TAB PO SCH (21:31)
[2024-05-20] MEDS: DOXAZosin MESYLATE TAB 2 MG TAB PO SCH (21:31)
[2024-05-20] MEDS: METOPROLOL TARTRATE 25 MG TAB PO SCH (21:31)
[2024-05-21 03:00] VITALS: RESP 18
--- NOTE | 2024-05-21 08:05 | Magnetic Resonance Report ---
MR brain wo con CLINICAL HISTORY: r/o stroke COMPARISON STUDY: CT yesterday FINDINGS: There is motion artifact on some sequences. There is stable prominence of the ventricles ou t of proportion to sulci, cerebral atrophy versus normal pressure hydrocephalus. No restricted diffus ion seen to suggest acute infarction. No mass effect or midline shift. There is moderate patchy periv entricular increased FLAIR signal intensity which is nonspecific but usually represents chronic small vessel ischemic changes. There is mild mucosal thickening at the right maxillary and ethmoid sinuses . IMPRESSION: No evidence of acute infarction. ACT 112: Negative or not required by law. Electronically signed by: Rl Dennis M.D. 05/21/2024 8:04 AM
[2024-05-21] MEDS: hydroCHLOROthiazide 25 MG TAB PO SCH (08:36)
[2024-05-21] MEDS: LOSARTAN POTASSIUM 50 MG TAB PO SCH (08:37)
[2024-05-21] MEDS: VIBEGRON 75 MG TAB PO SCH (08:37)
[2024-05-21] MEDS: CYANOCOBALAMIN (B-12) 500 MCG TABLET PO SCH (08:37)
[2024-05-21] MEDS: SERTRALINE HCL 50 MG TABLET PO SCH (08:37)
[2024-05-21] MEDS: TAMSULOSIN HCL 0.4 MG CAP PO SCH (08:37)
[2024-05-21] MEDS: CHOLECALCIFEROL 25 MCG (1000 UNITS) TAB PO SCH (08:37)
--- NOTE | 2024-05-21 08:38 | Hospitalist Progress Note ---
Date of Service May 21, 2024 Assessment & Plan (1) Stroke-like symptoms: Plan: Patient is 83-year-old male with PMH HTN, HLD, paroxysmal atrial fibrillation anticoagulated on Eliquis, anxiety, history of prostate CA presented to ER after episode of expressive aphasia this morning lasting approximately 10 minutes. No further symptoms In ER pt hypertensive, otherwise vitals stable. CT Head:no acute findings CTA Head: No definite stenosis or aneurysm of the intracranial arteries CTA neck: Mild stenosis of the left carotid bulb. Indeterminate thyroid nodule. CXR: Cardiomegaly is noted. Prominence and cephalization of the vasculature DDx: TIA, CVA, Hypertensive emergency, complex migraine Tele to monitor for arrhythmias A1C, TSH, Lipid panel in am MRI brain Echo Fall precautions, aspiration precautions PT/OT consult Anticoagulated on Eliquis. Will obtain MRI results before adding aspirin. Continue home dose atorvastatin, may need to consider increasing dose Allow permissive HTN, labetalol SBP>185 in 1st 24 hrs Consider neurology consult (2) Hypertension: Plan: Hypertensive in ER Allow permissive HTN, labetalol SBP>185 in 1st 24 hrs Continue home metoprolol tartrate, telmisartan, HCTZ (3) PAF (paroxysmal atrial fibrillation): Plan: Anticoagulated on Eliquis Continue Eliquis, metoprolol tartrate (4) Hyperlipidemia: Plan: On atorvastatin (5) Anxiety: Plan: Continue sertraline DVT Prophylaxis On Eliquis Admit telemetry Full Code as per discussion with pt Follows with Dr Mcgowan for routine care Pt was seen and care coordinated with Dr Dobbs. See addendum I spent a total of 79 minutes reviewing notes, outpatient records, labs, medication, coordinating, documenting and providing care for this patient excluding time spent in the performance of separately billed services. Admission and Anticipated Discharge Date Admission Date: May 20, 2024 Review of Systems Review of Systems: Neuro: (-) Falls, trauma, slurred speech HEENT: (-) BELTRAN, dizziness, dysphagia, visual or auditory changes CV: (-) CP, palpitations, swelling Resp: (-) SOB GI: (-) appetite changes, N/V/D, bowel changes : (-) urinary changes Skin: (-) rashes Psych: (-) anxiety, depression Physical Exam Physical Exam: Neuro: AAOx4, PERRLA, no aphagia, memory changes, CNII-XII grossly intact HEENT: head normocephalic, moist mucus membranes CV: S1/S2, (-) M/G/R, (-) edema, cap refill < 3 seconds Resp: Lungs CTA in all cameron. On RA GI: Abdomen S/NT/ND, Ax4 bowel sounds, (-) CVA tenderness Musculoskeletal: 5/5 B/L UE strength, 5/5 B/L LE strength. No gait disturbance Skin: (-) rashes , (-) erythema. Psych: euthymic mood Results & Data Results & Data Vital Signs (Past 12 Hours) Vital Signs Temp Pulse Pulse Pulse Resp BP BP 05/21/24 07:38 36.7 C 76 18 165/96 H 05/21/24 07:15 66 05/21/24 02:59 36.4 C L 69 18 158/83 H 05/20/24 23:32 36.4 C L 67 20 151/76 H 05/20/24 22:38 62 05/20/24 21:30 70 17 160/79 H 05/20/24 21:21 67 21 05/20/24 21:18 78 22 05/20/24 21:00 86 22 05/20/24 20:54 77 18 05/20/24 20:42 76 21 Pulse Ox O2 Del Method 05/21/24 07:38 96 Room Air 05/21/24 07:15 05/21/24 02:59 95 Room Air 05/20/24 23:32 96 Room Air 05/20/24 22:38 05/20/24 21:30 97 Room Air 05/20/24 21:21 94 Room Air 05/20/24 21:18 95 Room Air 05/20/24 21:00 96 Room Air 05/20/24 20:54 96 Room Air 05/20/24 20:42 94 Room Air Laboratory Results Short CBC 05/20/24 Range/Units 14:28 WBC 8.38 (4.8-10.8) K/ul Hgb 14.5 (14.0-18.0) g/dl Hct 40.6 L (42.0-52.0) % Plt Count 165 (130-400) K/uL BMP 05/20/24 14:28 Sodium 135 L Potassium 3.7 Chloride 101 Carbon Dioxide 29 BUN 16 Creatinine 0.63 Glucose 126 H Calcium 9.5 Liver Function 05/20/24 Range/Units 14:28 Total Bilirubin 0.9 (0.2-1.0) mg/dl AST 17 (13-39) U/L ALT 20 (7-52) U/L Alkaline Phosphatase 80 (34-104) U/L Albumin 4.4 (3.4-5.0) gm/dl Diagnostic Findings Brain MRI 05/21/24 08:00 MR brain wo con CLINICAL HISTORY: r/o stroke COMPARISON STUDY: CT yesterday FINDINGS: There is motion artifact on some sequences. There is stable prominence of the ventricles out of proportion to sulci, cerebral atrophy versus normal pressure hydrocephalus. No restricted diffusion seen to suggest acute infarction. No mass effect or midline shift. There is moderate patchy periventricular increased FLAIR signal intensity which is nonspecific but usually represents chronic small vessel ischemic changes. There is mild mucosal thickening at the right maxillary and ethmoid sinuses. IMPRESSION: No evidence of acute infarction. ACT 112: Negative or not required by law. Electronically signed by: Rl Dennis M.D. 05/21/2024 8:04 AM
[2024-05-21 11:09] LABS: Hematocrit (blood only) 41.1 % (42.0-52.0); Hemoglobin 14.6 g/dl (14.0-18.0); Mean Corpuscular Hemoglobin 30.7 pg (25.0-34.0); Mean Corpuscular Hgb Conc 35.5 g/dL (32.0-36.0); Mean Corpuscular Volume 86.3 fL (80.0-100.0); Mean Platelet Volume 10.5 fL (9.4-12.4); Platelet Count 157 K/uL (130-400); RDW Coefficient of Variation 12.7 % (11.5-14.5); RDW Standard Deviation 39.9 fL (36.4-46.3); Red Blood Count 4.76 M/uL (4.70-6.10)
[2024-05-21 11:22] LABS: Calcium 9.4 mg/dl (8.6-10.3); Chol HDL Ratio 3.1 (0-5); Creatinine Clr Calc Pharmacy 123.8 ml/min; Potassium 3.3 mmol/L (3.5-5.1)
[2024-05-21 11:36] LABS: Thyroid Stimulating Hormone 1.789 uIu/ml (0.300-4.500)
[2024-05-21 11:40] VITALS: BP 114/61; TEMP 97.7; O2SAT 94
[2024-05-21] MEDS: POTASSIUM CHLORIDE CRTAB 20 MEQ TABCR PO STA (12:27)
[2024-05-21 12:40] LABS: Estimated Average Glucose 114 mg/dl; Hemoglobin A1C 5.6 % (4.5-5.6)
--- NOTE | 2024-05-21 14:41 | Neurology Consultation ---
Date of Consultation May 21, 2024 Assessment & Plan (1) Stroke-like symptoms: Recommend continue frequent neurological assessments Obtain stat CT brain without contrast for any acute neurological decline Continue to monitor/control blood pressure & blood glucose Continue to monitor telemetry closely Continue to monitor renal and hepatic function, keep euvolemic Metabolic workup should include hgbA1c, fasting lipids, homocysteine, TSH, D Dimer, RPR, urinalysis Recommend continue full anticoagulation via twice daily apixaban Recommend increase dose of statin therapy to at least 40mg PO daily and continue indefinitely if tolerated Ok from neurology perspective for VTE prophylaxis PT/OT/SLT to eval and treat Telehealth Consultation Telehealth Information Telehealth Information: I performed this visit using a real-time telehealth connection between my location and the patients location ([facility]). After connecting through interactive tele-video, patient was identified by name and date of and/or wristband check.Patient (or authorized healthcare sales representative uniforms) was informed that this was a telemedicine visit and it was being conducted confidentially over secure lines. My office door was closed and no one else was present in the room with me.Patient (or authorized healthcare sales representative uniforms) provided consent to proceed with the visit, expressed an understanding of privacy and security of the telemedicine visit, and gave permission to have a hospital sales representative uniforms in the room in order to assist with the visit and to conduct portions of the visit, as needed. I informed the patient (or authorized healthcare sales representative uniforms) that I reviewed their record and presented the opportunity for them to ask any questions regarding the visit today. The patient agreed to participate. History of Present Illness Reason for Consultation: Episode of expressive aphasia Requesting Physician: Dr. Méndez Attending Physician: David Méndez MD History of Present Illness 83yo male with past medical history significant for paroxysmal AFIB for which he is currently fully anticoagulated via twice daily apixaban, HTN, hyperlipidemia as well as hx of neoplasm- prostate CA presented to ER following reported short lasting episode of expressive aphasia. The episode reportedly lasted approx 10 minutes. He was reportedly in a hurry to leave his house for lunch and felt extremely anxious. He reports fairly constant feelings of anxiety "anxiousness". He reports he was in a hurry because he and his were going to drive to [place] to meet a group of people at a [employer]. He has undergone stroke imaging including CT brain without contrast, personally reviewed, revealing no overt evidence of hemorrhage. CT angiographic studies of head and neck, also personally reviewed, reveal no overt evidence of large vessel occlusion or significant/flow limiting stenosis. MRI brain was performed depicting no evidence of acute ischemic stroke. I have performed televideo consultation. Utilizing telephone due to technical difficulties with televideo sound. He is alert & oriented; able to answer all questions appropriately, name objects on televideo monitor, repeat phrases and perform complex/embedded commands without deficit. Neurological exam is non lateralizing/nonfocal in terms of motor strength and coordination. Allergies Allergy/AdvReac Type Severity Reaction Status Date / Time aspirin Allergy Unknown Unknown Verified 05/20/24 16:28 ibuprofen [From Advil] Allergy Unknown Unknown Verified 05/20/24 16:28 lisinopril Allergy Unknown THROAT Verified 05/20/24 16:28 SWELLING pollen extracts Allergy Unknown Congested Verified 05/20/24 16:28 shellfish derived Allergy Unknown Vomiting Verified 05/20/24 16:28 Home Medications Medication Instructions Recorded Confirmed Type acetaminophen 500 mg capsule 500 mg PO QID PRN Pain 02/04/19 05/20/24 History atorvastatin 20 mg tablet 20 mg PO HS 02/04/19 05/20/24 History doxazosin 2 mg tablet 2 mg PO HS 02/04/19 05/20/24 History sertraline 50 mg tablet 50 mg PO QAM 02/04/19 05/20/24 History telmisartan 80 1 tab PO QAM 02/04/19 05/20/24 History mg-hydrochlorothiazide 25 mg tablet apixaban 5 mg tablet (Eliquis) 5 mg PO BID 12/26/20 05/20/24 History metoprolol tartrate 25 mg tablet 25 mg PO BID 10/23/21 05/20/24 History vibegron 75 mg tablet (Gemtesa) 75 mg PO DAILY #30 tabs 01/29/24 05/20/24 Rx cholecalciferol (vitamin D3) 50 50 mcg PO DAILY 05/20/24 05/20/24 History mcg (2,000 unit) tablet (Vitamin D3) cyanocobalamin (vitamin B-12) 1,000 mcg PO DAILY 05/20/24 05/20/24 History 1,000 mcg tablet (Vitamin B-12) tamsulosin 0.4 mg capsule 0.4 mg PO QAM 05/20/24 05/20/24 History Patient History Medical History History of venous stasis ulcer of lower extremity Depression Hyperlipidemia Urinary incontinence Environmental and seasonal allergies Irregular heart beat ? a fib hx - poor historian- controlled w/ medication - follows w/ [facility], last visit ~ yr ago History of Mohs micrographic surgery for skin cancer SCC (squamous cell carcinoma) hx Basal cell carcinoma hx Hypertension Surgical History Hx of cataract surgery right Hx of colonoscopy S/P hernia repair History of mastoidectomy mastoidectomy w/ type 4 tympanoplasty 1973. History of back surgery cyst removed History of hernia repair History of tonsillectomy and adenoidectomy Family History Mother Hypertension Cancer Father Cancer Other No family history of bleeding disorder Social History Smoking Status: Former smoker Tobacco Type: Cigarettes and Cigars packs per day: 1; Cigarettes Per Day: quit 1970; Second Hand Exposure: No; Do You Dip or Chew Tobacco: No; Tobacco Cessation Education Requested by Patient: No Hx Alcohol Use: No Hx Substance Use: No Preferred Language: Lao Communication Ability: Effective Visual Impairment: No Limitations Hearing Ability: Hard of Hearing [employer] Required: No Beliefs That Will Affect Care: None marital status: Current Living Situation: Spouse Current Living Situation Comment: with in independent living current occupational status: retired Other Information That Helps Us Care for You: No Feels Safe at Home: Yes Safety Concerns: Feels Safe At This Time Diet: regular caffeine: Yes during the past year weight has: remained stable Assistive Devices: Cane and Glasses Physical Exam Neurological Examination: Mental Status: Awake and alert. Oriented to person, place, and time. Fluency naming repetition and comprehension appear grossly intact. Affect remains appropriate. CN testing: I: Deferred II:Reports no changes in visual acuity III/IV/: No evidence of gaze preference, hippus, nystagmus or roving eye movements V: Facial sensation reportedly grossly intact to light touch bilaterally VII: Facial movements appear without evidence of asymmetry VIII: Hearing appears grossly intact to loud voice bilaterally IX/X: Palate is unable to be accurately visualized XI: Shoulder shrug appears symmetric/ grossly intact bilaterally XII: Tongue protrudes midline without evidence of biting Motor exam: Strength appears grossly intact/symmetric in all extremities Sensory: Sensation is reportedly grossly intact throughout Coordination: Deferred Reflexes: Deferred Gait: Deferred Results & Data Vital Signs (Past 12 Hours) Vital Signs Temp Pulse Pulse Resp BP BP Pulse Ox 05/21/24 13:49 64 05/21/24 11:39 36.5 C 70 18 114/61 94 05/21/24 07:38 36.7 C 76 18 165/96 H 96 05/21/24 07:15 66 05/21/24 02:59 36.4 C L 69 18 158/83 H 95 O2 Del Method 05/21/24 13:49 05/21/24 11:39 Room Air 05/21/24 07:38 Room Air 05/21/24 07:15 05/21/24 02:59 Room Air Laboratory Results Chest X-Ray 05/20/24 14:13 XR chest 1V portable CLINICAL HISTORY: stroke alert TECHNIQUE: Single frontal radiograph of the chest was obtained. Comparison: None available at the time of this dictation. FINDINGS: No lines and tubes are seen. Cardiomegaly is noted. Prominence and cephalization of the vasculature is seen. No evidence of pleural effusion or pneumothorax. IMPRESSION: Cardiomegaly and mild pulmonary edema. ACT 112: Negative or not required by law. Electronically signed by: Ha Steven M.D. 05/20/2024 2:46 PM Head CTA 05/20/24 15:36 Clinical history: Difficulty finding words Technique: Axial computed tomography images were obtained of the brain after the administration of intravenous contrast according to the CT angiogram protocol Findings: There is calcified plaque within the cavernous and supraclinoid segments of the internal carotid arteries bilaterally, without stenosis No definite stenosis or aneurysm is seen of the anterior, middle, or posterior cerebral artery circulations. The visualized vertebral arteries and the basilar artery appear unremarkable Impression: No definite stenosis or aneurysm of the intracranial arteries Electronically signed by Tyler Sunshine 05-20-2024 4:15 PM Neck CTA 05/20/24 15:36 Clinical history: Difficulty finding words Technique: Axial computed tomography images were obtained of the neck after the administration of intravenous contrast according to the CT angiogram protocol Findings: No stenosis is seen in the common carotid arteries bilaterally. There is a mild stenosis of the left carotid bulb with 30-40% diameter narrowing. There is less severe plaque in the right carotid bulb, without apparent stenosis. The remainder of the internal carotid arteries appear patent bilaterally. No stenosis of the external carotid arteries is seen The vertebral arteries are patent bilaterally with no significant stenosis seen. The visualized thoracic aorta appears unremarkable There is a small heterogeneously enhancing nodule in the right thyroid lobe Impression: 1. 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 Indeterminate thyroid nodule. A follow-up thyroid ultrasound could be obtained Electronically signed by Tyler Sunshine 05-20-2024 4:21 PM Brain MRI 05/21/24 08:00 MR brain wo con CLINICAL HISTORY: r/o stroke COMPARISON STUDY: CT yesterday FINDINGS: There is motion artifact on some sequences. There is stable prominence of the ventricles out of proportion to sulci, cerebral atrophy versus normal pressure hydrocephalus. No restricted diffusion seen to suggest acute infarction. No mass effect or midline shift. There is moderate patchy periventricular increased FLAIR signal intensity which is nonspecific but usually represents chronic small vessel ischemic changes. There is mild mucosal thickening at the right maxillary and ethmoid sinuses. IMPRESSION: No evidence of acute infarction. ACT 112: Negative or not required by law. Electronically signed by: Rl Dennis M.D. 05/21/2024 8:04 AM Diagnostic Findings Chest X-Ray 05/20/24 14:13 XR chest 1V portable CLINICAL HISTORY: stroke alert TECHNIQUE: Single frontal radiograph of the chest was obtained. Comparison: None available at the time of this dictation. FINDINGS: No lines and tubes are seen. Cardiomegaly is noted. Prominence and cephalization of the vasculature is seen. No evidence of pleural effusion or pneumothorax. IMPRESSION: Cardiomegaly and mild pulmonary edema. ACT 112: Negative or not required by law. Electronically signed by: Ha Steven M.D. 05/20/2024 2:46 PM Head CTA 05/20/24 15:36 Clinical history: Difficulty finding words Technique: Axial computed tomography images were obtained of the brain after the administration of intravenous contrast according to the CT angiogram protocol Findings: There is calcified plaque within the cavernous and supraclinoid segments of the internal carotid arteries bilaterally, without stenosis No definite stenosis or aneurysm is seen of the anterior, middle, or posterior cerebral artery circulations. The visualized vertebral arteries and the basilar artery appear unremarkable Impression: No definite stenosis or aneurysm of the intracranial arteries Electronically signed by Tyler Sunshine 05-20-2024 4:15 PM Neck CTA 05/20/24 15:36 Clinical history: Difficulty finding words Technique: Axial computed tomography images were obtained of the neck after the administration of intravenous contrast according to the CT angiogram protocol Findings: No stenosis is seen in the common carotid arteries bilaterally. There is a mild stenosis of the left carotid bulb with 30-40% diameter narrowing. There is less severe plaque in the right carotid bulb, without apparent stenosis. The remainder of the internal carotid arteries appear patent bilaterally. No stenosis of the external carotid arteries is seen The vertebral arteries are patent bilaterally with no significant stenosis seen. The visualized thoracic aorta appears unremarkable There is a small heterogeneously enhancing nodule in the right thyroid lobe Impression: 1. 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 Indeterminate thyroid nodule. A follow-up thyroid ultrasound could be obtained Electronically signed by Tyler Sunshine 05-20-2024 4:21 PM Brain MRI 05/21/24 08:00 MR brain wo con CLINICAL HISTORY: r/o stroke COMPARISON STUDY: CT yesterday FINDINGS: There is motion artifact on some sequences. There is stable prominence of the ventricles out of proportion to sulci, cerebral atrophy versus normal pressure hydrocephalus. No restricted diffusion seen to suggest acute infarction. No mass effect or midline shift. There is moderate patchy periventricular increased FLAIR signal intensity which is nonspecific but usually represents chronic small vessel ischemic changes. There is mild mucosal thickening at the right maxillary and ethmoid sinuses. IMPRESSION: No evidence of acute infarction. ACT 112: Negative or not required by law. Electronically signed by: Rl Dennis M.D. 05/21/2024 8:04 AM Medications Administered Home Medications Medication Instructions Recorded Confirmed Last Taken acetaminophen 500 mg capsule 500 mg PO QID PRN Pain 02/04/19 05/20/24 05/20/24 atorvastatin 20 mg tablet 20 mg PO HS 02/04/19 05/20/24 05/19/24 doxazosin 2 mg tablet 2 mg PO HS 02/04/19 05/20/24 05/19/24 sertraline 50 mg tablet 50 mg PO QAM 02/04/19 05/20/24 05/20/24 telmisartan 80 1 tab PO QAM 02/04/19 05/20/24 05/20/24 mg-hydrochlorothiazide 25 mg tablet apixaban 5 mg tablet (Eliquis) 5 mg PO BID 12/26/20 05/20/24 05/20/24 metoprolol tartrate 25 mg tablet 25 mg PO BID 10/23/21 05/20/24 05/20/24 vibegron 75 mg tablet (Gemtesa) 75 mg PO DAILY #30 tabs 01/29/24 05/20/24 05/20/24 cholecalciferol (vitamin D3) 50 50 mcg PO DAILY 05/20/24 05/20/24 05/20/24 mcg (2,000 unit) tablet (Vitamin D3) cyanocobalamin (vitamin B-12) 1,000 mcg PO DAILY 05/20/24 05/20/24 05/20/24 1,000 mcg tablet (Vitamin B-12) tamsulosin 0.4 mg capsule 0.4 mg PO QAM 05/20/24 05/20/24 05/20/24 Active Medications Generic Name Dose Route Start Last Admin Trade Name Freq PRN Reason Stop Dose Admin Apixaban 5 mg 05/20/24 21:00 05/21/24 08:37 Apixaban 5 Mg Tablet PO 06/19/24 20:59 5 mg BID JAIDEN Administration Atorvastatin Calcium 20 mg 05/20/24 21:00 05/20/24 21:31 Atorvastatin 20 Mg Tab PO 06/19/24 20:59 20 mg HS JAIDEN Administration Cyanocobalamin 1,000 mcg 05/21/24 09:00 05/21/24 08:37 Cyanocobalamin (B-12) 500 Mcg Tablet PO 06/20/24 08:59 1,000 mcg DAILY JAIDEN Administration Doxazosin Mesylate 2 mg 05/20/24 21:00 05/20/24 21:31 Doxazosin Mesylate Tab 2 Mg Tab PO 06/19/24 20:59 2 mg HS JAIDEN Administration Hydrochlorothiazide 25 mg 05/21/24 09:00 05/21/24 08:36 Hydrochlorothiazide 25 Mg Tab PO 06/20/24 08:59 25 mg DAILY JAIDEN Administration Losartan Potassium 100 mg 05/21/24 09:00 05/21/24 08:37 Losartan Potassium 50 Mg Tab PO 06/20/24 08:59 100 mg QAM JAIDEN Administration Metoprolol Tartrate 25 mg 05/20/24 21:00 05/21/24 08:37 Metoprolol Tartrate 25 Mg Tab PO 06/19/24 20:59 25 mg BID JAIDEN Administration Sertraline HCl 50 mg 05/21/24 09:00 05/21/24 08:37 Sertraline Hcl 50 Mg Tablet PO 06/20/24 08:59 50 mg QAM JAIDEN Administration Tamsulosin HCl 0.4 mg 05/21/24 09:00 05/21/24 08:37 Tamsulosin Hcl 0.4 Mg Cap PO 06/20/24 08:59 0.4 mg QAM JAIDEN Administration Vibegron 75 mg 05/21/24 09:00 05/21/24 08:37 Vibegron 75 Mg Tab PO 06/20/24 08:59 75 mg DAILY JAIDEN Administration Vitamin D 50 mcg 05/21/24 09:00 05/21/24 08:37 Cholecalciferol 25 Mcg (1000 Units) Tab PO 06/20/24 08:59 50 mcg DAILY JAIDEN Administration
--- NOTE | 2024-05-21 15:23 | Discharge Summary ---
Date of Service May 21, 2024 Admission HPI Per Admitting Provider Patient is 83-year-old male with PMH HTN, HLD, paroxysmal atrial fibrillation anticoagulated on Eliquis, anxiety, history of prostate CA presented to ER with complaint of episode of speech changes today. Patient states this morning woke up in his normal health. He states he was watching the news and then was trying to geiger to get ready to go out for lunch today and he was feeling increasingly anxious. States he is anxious "most of the time" and this felt like his typical anxiety. He states then he had onset of expressive aphasia that lasted approximately 10 minutes. Patient states symptoms self resolved. After that he had episode of "flashing light" in right eye. Denies any headache. Patient reports history episodes of "flashing light" to right eye in past that is never associated with headache, which he relates to possible migraine. Denies any headache, dizziness, extremity weakness, facial drooping. Reports chronic BLE peripheral neuropathy but denies any changes or increased extremity paresthe gaurav. States went to outpatient clinic today and was referred to ER. Denies any recurrent symptoms today. Denies fever/chills, diaphoresis, N/V/D/C, syncope, vision loss, diplopia, neck pain, CP, SOB, palpitations, cough, sore throat, rhinorrhea, abdominal pain, paresthesias, extremity edema, rashes, urinary symptoms. Admission Exam Per Admitting Provider General: no distress, WDWN Head: normocephalic, atraumatic Eyes: PERRL, EOM's intact, no nystagmus, conjunctiva non-injected, anicteric ENT: normal inspection external ears, nose, mucous membranes moist Neck: supple, trachea midline Lungs: clear, no respiratory distress, no wheezing/rhonchi/rales CV: RRR, no murmur, no JVD, no pretibial edema Abd: normal BS, soft, non-tender Ext: no cyanosis, no calf tenderness Neuro: A&O x 3, no focal deficits noted, anxious affect. facial sensation is intact and symmetric, face is strong and symmetric, soft palate elevates symmetrically, no dysarthria, shoulder shrug intact, tongue is midline, normal movement, no fasciculations. strength equal bilateral upper and lower extremities Skin: warm, dry Principal Diagnosis stroke like symptoms Discharge Exam Neuro: AAOx4, PERRLA, no aphagia, memory changes, CNII-XII grossly intact HEENT: head normocephalic, moist mucus membranes CV: S1/S2, (-) M/G/R, (-) edema, cap refill < 3 seconds Resp: Lungs CTA in all cameron. On RA GI: Abdomen S/NT/ND, Ax4 bowel sounds, (-) CVA tenderness Musculoskeletal: 5/5 B/L UE strength, 5/5 B/L LE strength. Uses a cane at baseline to ambulate Skin: (-) rashes , (-) erythema. Psych: euthymic mood Discharge Data Allergies Allergy/AdvReac Type Severity Reaction Status Date / Time aspirin Allergy Unknown Unknown Verified 05/20/24 16:28 ibuprofen [From Advil] Allergy Unknown Unknown Verified 05/20/24 16:28 lisinopril Allergy Unknown THROAT Verified 05/20/24 16:28 SWELLING pollen extracts Allergy Unknown Congested Verified 05/20/24 16:28 shellfish derived Allergy Unknown Vomiting Verified 05/20/24 16:28 Consultations 05/21/24 08:08 Consult Neurology Routine Ordered Studies 05/20/24 14:13 CT head/brain wo con Stat FINDINGS: No intracranial hemorrhage seen. No mass effect or midline shift. There is prominence of the ventricles out of proportion for sulci which could represent cerebral atrophy or mild normal pressure hydrocephalus. There is moderate patchy periventricular hypodensity which is nonspecific, but usually represents chronic small vessel ischemic changes. No skull fracture seen. There is mild mucosal thickening at the right maxillary sinus. IMPRESSION: No acute findings 05/20/24 15:36 CT angio head w con Stat Findings: There is calcified plaque within the cavernous and supraclinoid segments of the internal carotid arteries bilaterally, without stenosis No definite stenosis or aneurysm is seen of the anterior, middle, or posterior cerebral artery circulations. The visualized vertebral arteries and the basilar artery appear unremarkable Impression: No definite stenosis or aneurysm of the intracranial arteries CT angio neck with con Stat Findings: No stenosis is seen in the common carotid arteries bilaterally. There is a mild stenosis of the left carotid bulb with 30-40% diameter narrowing. There is less severe plaque in the right carotid bulb, without apparent stenosis. The remainder of the internal carotid arteries appear patent bilaterally. No stenosis of the external carotid arteries is seen The vertebral arteries are patent bilaterally with no significant stenosis seen. The visualized thoracic aorta appears unremarkable There is a small heterogeneously enhancing nodule in the right thyroid lobe Impression: 1. 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 Indeterminate thyroid nodule. A follow-up thyroid ultrasound could be obtained 05/21/24 08:00 MR brain wo con Routine FINDINGS: There is motion artifact on some sequences. There is stable prominence of the ventricles out of proportion to sulci, cerebral atrophy versus normal pressure hydrocephalus. No restricted diffusion seen to suggest acute infarction. No mass effect or midline shift. There is moderate patchy periventricular increased FLAIR signal intensity which is nonspecific but usually represents chronic small vessel ischemic changes. There is mild mucosal thickening at the right maxillary and ethmoid sinuses. IMPRESSION: No evidence of acute infarction. Total Time Total Time Spent Total Time Spent (In Minutes): I spent a total of 42 minutes coordinating, documenting, and providing care for this patient excluding time spent inthe performance of separately billed servic es or time spent by another provider/QHP. Discharge Plan Discharge Items Patient Disposition: Home - Self-Care Reason For Visit: STROKE LIKE SYMPTOMS Discharge Diagnosis: stroke like symptoms Activity: Resume your previous activity Weightbearing: Full weightbearing Non-emergency contact: Primary Care Provider and Neurologist Call non-emergency contact if: you have any medication questions, your pain is not controlled, your pain is worsening and your temperature is above 101.5 Follow-up/Referrals: Seymour Mcgowan MD [Primary Care Provider] - (Date & Time 05/29/2024 12:00 PM Provider: Seymour Mcgowan MD General Internal Medicine [facility] ) Diet: Heart Healthy Diet Texture: Easy to Chew Addtl Attending Provider Instructions: Mr. Carmen, You presented to the [facility] after experiencing expressive aphagia (difficulty getting your words released where they sound normal) You reported that this episode lasted approximately ten minutes. You indicated that you were also feeling anxious and stressed when this occurred. Upon your arrival to the Emergency Room, numerous imaging tests were performed including a brain CT scan, head and neck CTA, and Brain MRI. The stroke imaging that was performed included a CT brain without contrast revealing no overt evidence of hemorrhage (bleeding stroke). CT angiographic studies of head and neck did not indicated and evidence of large vessel occlusion or significant/flow limiting stenosis. MRI of your brain was performed depicting no evidence of acute ischemic stroke. We did consult the neurology to review the imaging studies and blood work obtained. We did obtain a lipid panel to look at any fat within your blood vessels that can be an indicator of stroke. The results will be outlined below. Incidentally, and likely not related to your symptoms, on the CTA of your head/neck Mild stenosis of the left carotid bulb was identified and also an indeterminate thyroid nodule. A follow-up thyroid ultrasound could be obtained which will be recommended to your PCP as well. On examination, your symptoms have ultimately resolved and did not return overnight. Additionally, we had physical therapy visit with you to determine the safety of your ambulation. You indicated that you use a cane at baseline to ambulate. Physical Therapy Neurology recommended increasing your statin to 40 mg daily which will be outlined below. It is recommended that you have a speech therapy evaluation as well if you have continued aphagia or coughing with swallowing. On examination, your symptoms have virtually resolved and you have returned to baseline. It is supsected that you may have had a TIA (trans-ischemic attack or mini stroke) As outlined below, please see the recommendations. MEDICATION CHANGES: 1. Continue your prescribed medications including Eliquis. 2. In addition, it is recommended that your Atorvastatin be increased from 20 mg daily to 40 mg daily. This will help provide better protection against any further neurologic episodes. Take Atorvastatin 40 mg by mouth daily. SUMMARY OF TEST RESULTS: A brain CT scan, head and neck CTA, and Brain MRI. The stroke imaging that was performed included a CT brain without contrast revealing no overt evidence of hemorrhage (bleeding stroke). CT angiographic studies of head and neck did not indicated and evidence of large vessel occlusion or significant/flow limiting stenosis. MRI of your brain was performed depicting no evidence of acute ischemic stroke. CTA of your head/neck Mild stenosis of the left carotid bulb was identified and also an indeterminate thyroid nodule. A follow-up thyroid ultrasound could be obtained which will be recommended to your PCP as well. Given your history of prostate cancer, this is improtant to follow up on. RECOMMENDATIONS FOR FOLLOW-UP: 1. It is recommended that you follow up with your PCP. An appointment has been arranged for Wednesday May 29, [address] Mcgowan at 12:00 PM at [facility]. 2. Follow up with your Neurology as previously scheduled. 3. It is recommended that you continue with outpatient physical therapy; a prescription for you to use at a physical therapy location of your choice will be provided to you at time of discharge. OTHER INSTRUCTIONS: Seek medical attention if you have: * temperature above 101 * chest pain or trouble breathing * abdominal pain, nausea, vomiting * diarrhea, dark stools or bloody stools * any unanswered questions or concerns Call 911 if symptoms are severe. Please take good care of yourself. It has been a pleasure taking care of you. Please take care of yourself. If you have any questions regarding your recent hospitalization please contact [facility] and request Shoshana Chaparroist @ [phone]. Pending Studies at Discharge: No Stand-Alone Forms: My [facility], Smoking Cessation Medications and DC Order Prescriptions: Continued metoprolol tartrate 25 mg tablet 25 mg PO BID Eliquis 5 mg tablet 5 mg PO BID telmisartan-hydrochlorothiazid 80-25 mg tablet 1 tab PO QAM doxazosin 2 mg tablet 2 mg PO HS sertraline 50 mg tablet 50 mg PO QAM Gemtesa 75 mg tablet 75 mg PO DAILY Qty: 30 5RF cyanocobalamin (vitamin B-12) [Vitamin B-12] 1,000 mcg Tablet 1,000 mcg PO DAILY cholecalciferol (vitamin D3) [Vitamin D3] 50 mcg (2,000 unit) Tablet 50 mcg PO DAILY tamsulosin 0.4 mg capsule 0.4 mg PO QAM Changed atorvastatin 20 mg tablet 40 mg PO HS Qty: 0 0RF Discontinued acetaminophen 500 mg capsule 500 mg PO QID PRN (Reason: Pain) Discharge Orders: Discharge Order (Routine); Ordered 05/21/24 Ordered By: Mary Giles/Other Patient Handouts: Aphasia: Improving Communication Admission Data Admit Date/Time: 05/20/24 17:29 Attending Provider: David Méndez Admit Provider: Jodie Dobbs Primary Care Provider: Seymour Mcgowan Other Providers: Cindy Veronica; Alex Camp; Cindy James; Rl Virgen; Juan Holly; Mk Ybarra; Gregory Stuart; Cristy Payan; Leandro Steen; Rajeev Caruso; Jessica Orantes; Manfred Mccarthy; Mer Pino; Grecia Craig; Gregory Gilmore; Sona Ace Other Interventions: Discharge Summary Assessment (RN) Last Done: 05/21/24 15:57
[2024-05-21] MEDS ORDERED: STROKE PATIENT DISCHARGE STA (15:47)
[2024-05-21 15:57] VITALS: PULSE 70
--- OUTSIDE RECORDS SUMMARY | 2024-05-21 21:23 | External Medical Summary | Summary of Care ---
Author Name Unknown Organization [facility] [address] [address] Phone [phone] Care Team Providers Care Tiller Worker Name Role Phone Seymour Mcgowan MD Primary Care Provider + Reason for Visit * Reason Comments Skin Check Waist up skin check - HX 2019 SCC is chestSCC vertex scalp [place] - 2014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Hx of BCC on right posterior shoulder - 1985 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Hx of AK's c/p cryoNo concerns today. Encounter Details Date Type Department Care Team (Late st Contact Info) Description 05/18/2024 3:10 PM EST Office Visit Dermatology [facility] [place] [address] [place] [address] Isi Franklin PA-C [address] [facility] [place] [id number] Actinic keratosis*; Seborrheic keratoses; Diffuse photodamage of skin; History of nonmelanoma skin cancer; Skin exam, screening for cancer Allergies Active Allergy Reactions Criticality Noted Date Comments Ibuprofen Other (Please comment) 03/07/2011 Pt was told to,not take --allergy to lisinopril Buffered Aspirin Other (Please comment) 03/07/2011 Pt states was told to not take--allergy to lisinopril Aspirin 03/28/2015 Lisinopril Anaphylaxis High 10/26/2010 Pollen Extract 07/30/2023 Other Reaction(s): Congested Shellfish-Derived Products Nausea/vomiting 09/06/2020 documented as of this encounter (statuses as of 05/19/2024) Medications SHLIPA 180 MG PO TABS Take by mouth. Active VITAMIN C 500 MG PO TABS one pill each day Active B-COMPLEX/B-12 PO TABS Take by mouth. Active ACETAMINOPHEN 500 MG PO TABS as [...] 1 Tablet before bedtime. 180 Tablet 1 Active documented as of this encounter (statuses as of 05/19/2024) Active Problems Problem Noted Date Diagnosed Date [...] as of this encounter (statuses as of 05/19/2024) Resolved Problems Problem Noted Date Diagnosed Date [...] as of this encounter (statuses as of 05/19/2024) Immunizations Name Administration Dates Next Due COVID-19 mRNA, LNP-s, No Pre serve, 2-Dose Series (Make YES! Happen) 03/01/2021,07/11/2020,06/11/2020 COVID-19, LNP-s, No Preserve , Carlton-sucrose, Ages 12+ (Pfizer) 09/13/2021 Covid-19, Mrna, Lnp-s, Pf, B ivalent, 30 Mcg, IM, 12 yrs and above (Make YES! 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 11/15/2023 (in office), Visit date not found (telemedicine) SUBJECTIVE: HPI: Glen Carmen is a 83 year old male who is an established patient seen for follow-up full skin exam. Patient last visit on 10/07/23 (Dr. Carreon). Pt prefers waist up skin exam today. 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 VITAMIN C 500 MG PO TABS one pill each day B-COMPLEX/B-12 PO TABS Take by mouth. ACETAMINOPHEN 500 MG PO TABS as needed for pain; no dosage provided; patient reports takes rarely PA BIOTIN 1000 MCG PO TABS 1 tablet daily Multiple Vitamins-Minerals (CENTRUM SILVER) Tablet Take 1 Tablet by mouth in the morning. When not taking b-complex vitamin. Joint Health Oral Capsule Take by mouth 1 Capsule daily . Gemtesa 75 MG Oral Tablet Take 1 Tablet by mouth in the morning. Tamsulosin HCl 0.4 MG Oral Capsule (Flomax) Sertraline HCl 50 MG Oral Tablet (Zoloft) take 1 tablet by mouth once daily 90 Tablet 3 Telmisartan-HCTZ 80-25 MG Oral Tablet take 1 tablet by mouth every morning 90 Tablet 3 Doxazosin Mesylate 2 MG Oral Tablet (Cardura) take 1 tablet by mouth once daily 90 Tablet 1 Metoprolol Tartrate 25 MG Oral Tablet (Lopressor) take 1 tablet by mouth every morning and at bedtime 180 Tablet 1 Atorvastatin Calcium 20 MG Oral Tablet (Lipitor) take 1 tablet by mouth every morning 90 Tablet 1 Apixaban 5 MG Oral Tablet (Eliquis) Take 1 Tablet by mouth in the morning and 1 Tablet before bedtime. 180 Tablet 1 Ofloxacin 0.3 % Otic Solution (Floxin) INSERT 6 DROPS INTO EAR TWICE A DAY FOR 7 DAYS (Patient not taking: Reported on 05/18/2024) No current facility-administered medications for this visit. ALLERG Y: Lisinopril, Advil [ibuprofen], Asa buff (mag [buffered aspirin], Aspirin, Pollen extract, and Shellfish-derived products OBJECTIVE: GEN: Healthy, alert, no distress, appears oriented, pleasant, and cooperative. PSYCH: Appropriate mood and affect, alert SKIN: Detailed exam of scalp, hair, face including lids and lips, ears, neck, chest, back, abdomen,buttocks, bilateral upper extremities and bilateral lower extremities including the nails and digits was completed and are within normal limits with the following exceptions: 1. rough pink scaling patches on crown of scalp, R frontal scalp, L neck, R mu-ism 2. Scattered benign appearing lesions over examined skin including scattered benign and relatively monomorphic appearing melanocytic nevi, waxy flesh- colored, greyish brown benign and non-inflamed appearing stuck-on papules and plaques, benign and uniform appearing brown macules and patches in sun exposed areas, bright red benign appearing dome-shaped papules and macules, and solar elastosis and evident photodamage of sunexposed skin. 3. Numerous scars from previous NMSC ASSESSMENT/PLAN: 1. Actinic Keratosis -Educated on premalignant potential and small risk of developing into a SCC -Discussed treatment options including cryotherapy. Patient prefers cryotherapy. -Cryosurgery procedure, risks and benefits explained to the patient. Specifically, side effects including blistering, hyperpigmentation, hypopigmentation, scar or pain at procedure site was discussedand patient verbalized understanding. Consent was obtained by me. Patient, site and procedure verified. Cryotherapy was performed with Liquid Nitrogen via cryo spray unit to 8 lesions. Location notedin physical exam. Post op course explained. -Counseled on importance of sun protection with sunscreen of at least SPF 30 and protective clothing. -Discussed importance of yearly skin checks and to contact our office if he notices any new or changes skin lesion. 2. Seborrheic Keratosis -Reassured of the benign nature of lesion -Discussed with patient that they may get more of these lesions in the future -If there are any lesions that become irritated, bleed, or painful to return to clinic for evaluation -No current treatment necessary at this time 3. Photodamage - The signs and symptoms of skin cancer were reviewed and the patient was advised to practice sun protection and sun avoidance, use daily sunscreen, and perform regular self skin exams. 4. H/o nonmelanoma skin cancer - No evidence of disease, continue to monitor 5. Routine Skin Examination For Skin Cancer -Educated patient on ABCDE's. -Advised patient that if they notice any of these changes to please call for a follow-up appointment as soon as possible. -Counseled patient on criteria for good sunscreen including SPF 30 or higher, broad spectrum (UVA and UVB) and water resistant (up to 40 to 80 minutes). Advised to reapply sunscreen every 2 hours andafter swimming or profuse sweating. Advised to wear protective clothing when out in the sun including long sleeved shirt, pants, wide-brimmed hat and sunglasses. Informed to seek shade during 10 AM to 4 PM when the sun's rays are the strongest. -Advised to perform routine (at least once a year) skin self-examinations. Advised to contact theirdermatologist immediately if they notice any new or changing skin lesions. Patient alone today. Follow-up: 6 months Photos taken, patient consented to photos taken. Applicable photos (if any) and chart reviewed by Dr. Papito Moeller The patient was encouraged to contact me with any further questions or concerns. 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 11/15/2023 (in office), Visit date not found (telemedicine) documented in this encounter Plan of Treatment Upcoming Encounters Date Type Department Care Team (Late st Contact Info) Description 06/05/2024 2:00 PM EST Office Visit Cardiology, [facility] [address] [place] [address] Sonal Ramon CRNP [address] [place] [address] 07/07/2024 2:00 PM EDT Office Visit Hematology/Oncology [facility] [address] [facility] [place] [id number] Reynaldo Richard MD [address] [facility] [place] [address] 08/12/2024 2:20 PM EDT Office Visit Neurology [facility] [address] [facility] [place] [address] Mari Powell MD [address] [facility] [place] [address] 11/17/2024 1:50 PM EDT Office Visit Dermatology [facility] [place] [address] [place] [address] Isi Franklin PA-C [address] [place] [address] 12/29/2024 2:40 PM EDT Office Visit General Internal Medicine [facility] [address] [facility] [place] [address] Seymour Mcgowan MD [address] [facility] [place] [address] Health Maintenance Due Date Last Done Comments [...] Not on filedocumented as of this encounter Procedures Procedure Name Priority Date/Time Associated Diagnosis Comments DERM EXAM - DERM (IMAGES ONLY, NO REPORT) Routine 05/18/2024 3:43 PM EST Seborrheic keratoses Diffuse photodamage of skin History of nonmelanoma skin cancer Skin exam, screening for cancer documented in this encounter Results * DERM EXAM - DERM (IMAGES ONLY, NO REPORT) (05/18/2024 3:43 PM EST) Narrative Scheduling, Silent - 05/18/2024 3:43 PM EST This is an imaging study not interpreted or resulted by a [facility] or [facility] contracted radiologist. us Isi Franklin PA-C RADIOLOGY (RAD [facility]) Final Result documented in this encounter Visit Diagnoses Diagnosis Actinic keratosis- Primary Seborrheic keratoses Diffuse photodamage of skin Other chronic dermatitis due to solar radiation History of nonmelanoma skin cancer Personal history of other malignant neoplasm of skin Skin exam, screening for cancer Screening for malignant neoplasm of the skin documented in this encounter Care Teams Tiller Worker Relationship Specialty Start Date End Date Seymour Mcgowan MD [address] [place] [address] PCP - General Internal Medicine 10/26/10 documented as of this encounter
== END 2024-05-21 17:00 | disposition home or self-care (01) ==
LOC: ED 14:02 → EDINP 14:02 → SUATTDRO 17:29 → 2N 18:17